=== PATIENT | female | born 1960 | race African-American/Black ===

== ENCOUNTER 2021-02-15 14:49 | Inpatient (IN) | payer OTHER ==
[2021-02-15 16:12] VITALS: BMI 42.2
[2021-02-15] MEDS ORDERED: ACETAMINOPHEN 325 MG TABLET (FP) PO PRN (19:40)
[2021-02-15] MEDS ORDERED: MENTHOL/PHENOL 1 EACH UD MM PRN (19:40)
[2021-02-15] MEDS ORDERED: MAGNESIUM HYDROX 2400MG/30ML ORAL SUSPENSION 30 ML CUP PO PRN (19:40)
[2021-02-15] MEDS ORDERED: ONDANSETRON *ODT* 4 MG TABLET SL PRN ×2 (19:40→19:59)
[2021-02-15] MEDS ORDERED: MAG HYDROX/AL HYDROX/SIMETH 30 ML UNIT-DOSE CUP PO PRN (19:40)
[2021-02-15] MEDS ORDERED: BISMUTH SUBSALICYLATE 524 MG/30 ML PO PRN (19:40)
[2021-02-15] MEDS ORDERED: MAGNESIUM CITRATE 300 ML BOTTLE PO PRN (19:40)
[2021-02-15] MEDS ORDERED: ONDANSETRON 8 MG TABLET (FP) PO PRN (19:47)
[2021-02-15] MEDS ORDERED: IBUPROFEN 400 MG PO SCH (21:00)
[2021-02-15] MEDS: diazePAM 5 MG TABLET PO PRN (21:16)
[2021-02-15] MEDS: BUPRENORPHINE/NALOXONE 8 MG/2 MG FILM PACKET SL SCH (21:17)
[2021-02-15] MEDS: THIAMINE HCL 100 MG TABLET (FP) PO SCH (23:31)
[2021-02-15] MEDS: MELATONIN 5 MG TABLETS PO SCH (23:31)
[2021-02-15] MEDS: diazePAM 5 MG TABLET PO SCH (23:31)
[2021-02-15] MEDS: hydrOXYzine PAMOATE 25 MG CAPSULE (FP) PO SCH (23:31)
[2021-02-16] MEDS: diazePAM 5 MG TABLET PO SCH ×4 (06:28→22:26)
[2021-02-16] MEDS: hydrOXYzine PAMOATE 25 MG CAPSULE (FP) PO SCH ×2 (06:29→10:03)
[2021-02-16] MEDS: metFORMIN HCL 500 MG TABLET (FP) PO SCH (06:29)
[2021-02-16] MEDS: diazePAM 5 MG TABLET PO PRN (08:40)
[2021-02-16] MEDS: PRENATAL VITAMINS W/ FOLIC ACID TABLET (FP) PO SCH (10:02)
[2021-02-16] MEDS: SERTRALINE HCL 50 MG TABLET (FP) PO SCH (10:03)
[2021-02-16] MEDS: BUPRENORPHINE/NALOXONE 8 MG/2 MG FILM PACKET SL SCH ×2 (10:03→21:57)
[2021-02-16] MEDS: HYDROCHLOROTHIAZIDE 25 MG TABLET (FP) PO SCH (10:03)
[2021-02-16 10:05] LABS: HEMATOCRIT 43.9 % (32.4-45.2); HEMOGLOBIN 14.6 GM/dL (10.7-15.3); MCH 30.9 pg (25.7-33.7); MCHC 33.1 g/dl (32.0-36.0); MEAN CELL VOLUME 93.3 fl (80-96); MEAN PLT VOLUME 8.8 fl (7.5-11.1); PLATELET COUNT 226 10^3/uL (134-434); RBC 4.71 M/mm3 (3.60-5.2); WHITE BLOOD COUNT 6.1 K/mm3 (4.0-10.0)
[2021-02-16 10:16] LABS: CALCIUM 9.1 mg/dL (8.5-10.1)
[2021-02-16 10:17] LABS: ALBUMIN 3.5 g/dl (3.4-5.0); BLOOD UREA NITROGEN 8.8 mg/dL (7-18)
[2021-02-16 10:20] LABS: CREATININE 0.8 mg/dL (0.55-1.3)
[2021-02-16 10:22] LABS: BILIRUBIN,TOTAL 0.6 mg/dL (0.2-1); TOT PROT 7.6 g/dl (6.4-8.2)
[2021-02-16] MEDS: PATIENT'S OWN MEDICATION (NON-FORMULARY) (Budesonide [Pulmicort Flexhaler] 90 MCG Aer.Pow. IH SCH (13:31)
[2021-02-16] MEDS: PATIENT'S OWN MEDICATION (NON-FORMULARY) (Umeclidinium Bromide [Incruse Ellipta] 62.5 MCG IH SCH (15:02)
[2021-02-16] MEDS: NICOTINE 10 MG CARTRIDGE (INHALER) IH PRN (17:45)
[2021-02-16] MEDS: MELATONIN 5 MG TABLETS PO SCH (21:56)
[2021-02-16] MEDS: THIAMINE HCL 100 MG TABLET (FP) PO SCH (21:56)
[2021-02-16] MEDS: BUDESONIDE IH SCH (22:00)
[2021-02-16] MEDS: FORMETEROL FUMARATE IH SCH (22:00)
[2021-02-17] MEDS: diazePAM 5 MG TABLET PO SCH ×3 (06:24→22:26)
[2021-02-17] MEDS: metFORMIN HCL 500 MG TABLET (FP) PO SCH (06:24)
[2021-02-17] MEDS: METHOCARBAMOL 500 MG TABLET PO PRN ×2 (06:25→22:26)
[2021-02-17] MEDS: IBUPROFEN 400 MG TABLET (FP) PO PRN (06:25)
[2021-02-17] MEDS: NICOTINE 10 MG CARTRIDGE (INHALER) IH PRN (06:33)
[2021-02-17] MEDS: SERTRALINE HCL 50 MG TABLET (FP) PO SCH (10:13)
[2021-02-17] MEDS: hydrOXYzine PAMOATE 25 MG CAPSULE (FP) PO PRN ×2 (10:13→22:26)
[2021-02-17] MEDS: HYDROCHLOROTHIAZIDE 25 MG TABLET (FP) PO SCH (10:13)
[2021-02-17] MEDS: PRENATAL VITAMINS W/ FOLIC ACID TABLET (FP) PO SCH (10:13)
[2021-02-17] MEDS: FORMETEROL FUMARATE IH SCH ×2 (10:14→22:25)
[2021-02-17] MEDS: BUPRENORPHINE/NALOXONE 8 MG/2 MG FILM PACKET SL SCH ×2 (10:14→22:27)
[2021-02-17] MEDS: BUDESONIDE IH SCH ×2 (10:14→22:25)
[2021-02-17] MEDS: ACETAMINOPHEN 325 MG TABLET (FP) PO PRN (10:16)
[2021-02-17] MEDS: PATIENT'S OWN MEDICATION (NON-FORMULARY) (Umeclidinium Bromide [Incruse Ellipta] 62.5 MCG IH SCH (11:12)
[2021-02-17] MEDS: MELATONIN 5 MG TABLETS PO SCH (22:25)
[2021-02-17] MEDS: THIAMINE HCL 100 MG TABLET (FP) PO SCH (22:26)
[2021-02-18] MEDS: diazePAM 5 MG TABLET PO SCH ×2 (06:31→18:10)
[2021-02-18] MEDS: metFORMIN HCL 500 MG TABLET (FP) PO SCH (06:31)
[2021-02-18] MEDS: METHOCARBAMOL 500 MG TABLET PO PRN ×2 (06:36→19:50)
[2021-02-18] MEDS: NICOTINE 10 MG CARTRIDGE (INHALER) IH PRN ×2 (07:52→12:48)
[2021-02-18] MEDS: PRENATAL VITAMINS W/ FOLIC ACID TABLET (FP) PO SCH (10:19)
[2021-02-18] MEDS: HYDROCHLOROTHIAZIDE 25 MG TABLET (FP) PO SCH (10:20)
[2021-02-18] MEDS: BUDESONIDE IH SCH ×2 (10:20→22:28)
[2021-02-18] MEDS: FORMETEROL FUMARATE IH SCH ×2 (10:20→22:28)
[2021-02-18] MEDS: SERTRALINE HCL 50 MG TABLET (FP) PO SCH (10:20)
[2021-02-18] MEDS: PATIENT'S OWN MEDICATION (NON-FORMULARY) (Umeclidinium Bromide [Incruse Ellipta] 62.5 MCG IH SCH (10:20)
[2021-02-18] MEDS: BUPRENORPHINE/NALOXONE 8 MG/2 MG FILM PACKET SL SCH ×2 (10:21→22:27)
[2021-02-18] MEDS: IBUPROFEN 400 MG TABLET (FP) PO PRN ×2 (10:22→19:50)
[2021-02-18] MEDS ORDERED: BENZOCAINE 20 % GEL TUBE MM PRN (17:52)
[2021-02-18] MEDS: hydrOXYzine PAMOATE 25 MG CAPSULE (FP) PO PRN (19:50)
[2021-02-18] MEDS: MELATONIN 5 MG TABLETS PO SCH (22:23)
[2021-02-18] MEDS: THIAMINE HCL 100 MG TABLET (FP) PO SCH (22:23)
[2021-02-18] MEDS: ACETAMINOPHEN 325 MG TABLET (FP) PO PRN (22:27)
[2021-02-19] MEDS: IBUPROFEN 400 MG TABLET (FP) PO PRN (05:42)
[2021-02-19] MEDS ORDERED: diazePAM 5 MG TABLET PO ONE (06:00)
[2021-02-19] MEDS: metFORMIN HCL 500 MG TABLET (FP) PO SCH (07:53)
[2021-02-19] MEDS ORDERED: FUROSEMIDE 40 MG TABLET (FP) PO ONE (09:01)
[2021-02-19] MEDS: BUDESONIDE IH SCH (10:10)
[2021-02-19] MEDS: PRENATAL VITAMINS W/ FOLIC ACID TABLET (FP) PO SCH (10:10)
[2021-02-19] MEDS: FORMETEROL FUMARATE IH SCH (10:10)
[2021-02-19] MEDS: BUPRENORPHINE/NALOXONE 8 MG/2 MG FILM PACKET SL SCH (10:10)
[2021-02-19] MEDS: SERTRALINE HCL 50 MG TABLET (FP) PO SCH (10:10)
[2021-02-19] MEDS: PATIENT'S OWN MEDICATION (NON-FORMULARY) (Umeclidinium Bromide [Incruse Ellipta] 62.5 MCG IH SCH (10:11)
[2021-02-19] MEDS: HYDROCHLOROTHIAZIDE 25 MG TABLET (FP) PO SCH (10:11)
[2021-02-19] MEDS: NICOTINE 10 MG CARTRIDGE (INHALER) IH PRN (11:17)
[2021-02-19 13:06] VITALS: BP 106/72; PULSE 73; TEMP 97.3
== END 2021-02-19 03:31 | disposition other institution (70) | DRG 773 ==
LOC: YASAS 14:49 → Y3N 19:09
PROVIDERS: ADMIT Allergy & Immunology; ATTEND Allergy & Immunology
PROC: HZ2ZZZZ Detoxification Services for Substance Abuse Treatment (ICD-10-PCS; principal; 2021-02-15)
DX: F10.230 Alcohol dependence with withdrawal, uncomplicated (principal); F11.20 Opioid dependence, uncomplicated; F17.210 Nicotine dependence, cigarettes, uncomplicated; I10 Essential (primary) hypertension; E11.65 Type 2 diabetes mellitus with hyperglycemia; R60.0 Localized edema; R76.8 Other specified abnormal immunological findings in serum; J44.9 Chronic obstructive pulmonary disease, unspecified; E66.9 Obesity, unspecified; Z68.41 Body mass index [BMI] 40.0-44.9, adult; Z86.19 Personal history of other infectious and parasitic diseases; Z79.84 Long term (current) use of oral hypoglycemic drugs
CPT/HCPCS: 36415; 80053; 82962; 85027; 86593; 86780; C9803; U0003; U0005

== ENCOUNTER 2021-02-19 16:05 | Inpatient (IN) | payer OTHER ==
[2021-02-19] MEDS ORDERED: NICOTINE POLACRILEX 2 MG GUM BUC PRN (17:14)
[2021-02-19] MEDS ORDERED: LOPERAMIDE HCL 2 MG CAPSULE PO PRN (17:14)
[2021-02-19] MEDS ORDERED: MENTHOL/PHENOL 1 EACH UD MM PRN (17:14)
[2021-02-19] MEDS ORDERED: P-EPHED 60MG/TRIPROLIDI 2.5MG TABLET PO PRN (17:14)
[2021-02-19] MEDS ORDERED: ACETAMINOPHEN 325 MG TABLET (FP) PO PRN (17:14)
[2021-02-19] MEDS ORDERED: guaiFENesin 200 MG/10 ML 10 ML UNIT-DOSE CUPS PO PRN (17:14)
[2021-02-19] MEDS ORDERED: MAGNESIUM HYDROX 2400MG/30ML ORAL SUSPENSION 30 ML CUP PO PRN (17:14)
[2021-02-19] MEDS ORDERED: MAGNESIUM CITRATE 300 ML BOTTLE PO PRN (17:14)
[2021-02-19] MEDS ORDERED: PATIENT'S OWN MEDICATION (NON-FORMULARY) (Budesonide [Pulmicort Flexhaler] 90 MCG Aer.Pow. IH PRN (17:15)
[2021-02-19] MEDS: BUPRENORPHINE/NALOXONE 8 MG/2 MG FILM PACKET SL SCH (21:31)
[2021-02-19] MEDS: MELATONIN 5 MG TABLETS PO SCH (21:31)
[2021-02-19] MEDS: THIAMINE HCL 100 MG TABLET (FP) PO SCH (21:31)
[2021-02-19] MEDS: BUDESONIDE/FORMETEROL FUMARATE 160/4.5 mcg INHALER IH SCH (22:13)
[2021-02-19] MEDS: MAG HYDROX/AL HYDROX/SIMETH 30 ML UNIT-DOSE CUP PO PRN (22:14)
[2021-02-20 00:23] VITALS: BMI 42.2
[2021-02-20] MEDS: metFORMIN HCL 500 MG TABLET (FP) PO SCH (06:29)
[2021-02-20] MEDS: hydrOXYzine PAMOATE 25 MG CAPSULE (FP) PO PRN ×3 (06:30→14:19)
[2021-02-20] MEDS: BUDESONIDE/FORMETEROL FUMARATE 160/4.5 mcg INHALER IH SCH ×2 (10:20→21:08)
[2021-02-20] MEDS: HYDROCHLOROTHIAZIDE 25 MG TABLET (FP) PO SCH (10:20)
[2021-02-20] MEDS: PRENATAL VITAMINS W/ FOLIC ACID TABLET (FP) PO SCH (10:20)
[2021-02-20] MEDS: BUPRENORPHINE/NALOXONE 8 MG/2 MG FILM PACKET SL SCH ×2 (10:21→21:08)
[2021-02-20] MEDS ORDERED: LIDOCAINE VISCOUS 2% ORAL/TOP 15 ML UNIT-DOSE CUP MM PRN (12:23)
[2021-02-20] MEDS ORDERED: PT OWN MED DRAWER 7, Y5N ONE ×2 (12:43→21:44)
[2021-02-20] MEDS: AMOXICILLIN 500 MG CAPSULE (FP) PO SCH ×2 (14:19→21:09)
[2021-02-20] MEDS: PATIENT'S OWN MEDICATION (NON-FORMULARY) (Umeclidinium Bromide [Incruse Ellipta] 62.5 MCG IH SCH (15:26)
[2021-02-20] MEDS: THIAMINE HCL 100 MG TABLET (FP) PO SCH (21:08)
[2021-02-20] MEDS: MELATONIN 5 MG TABLETS PO SCH (21:09)
[2021-02-21] MEDS: metFORMIN HCL 500 MG TABLET (FP) PO SCH (06:27)
[2021-02-21] MEDS: AMOXICILLIN 500 MG CAPSULE (FP) PO SCH ×3 (06:27→21:53)
[2021-02-21] MEDS: hydrOXYzine PAMOATE 25 MG CAPSULE (FP) PO PRN ×3 (06:29→13:26)
[2021-02-21] MEDS: PATIENT'S OWN MEDICATION (NON-FORMULARY) (Umeclidinium Bromide [Incruse Ellipta] 62.5 MCG IH SCH (09:12)
[2021-02-21] MEDS: PRENATAL VITAMINS W/ FOLIC ACID TABLET (FP) PO SCH (09:13)
[2021-02-21] MEDS: HYDROCHLOROTHIAZIDE 25 MG TABLET (FP) PO SCH (09:13)
[2021-02-21] MEDS: BUDESONIDE/FORMETEROL FUMARATE 160/4.5 mcg INHALER IH SCH ×2 (09:13→21:55)
[2021-02-21] MEDS: SERTRALINE HCL 50 MG TABLET (FP) PO SCH (09:13)
[2021-02-21] MEDS: BUPRENORPHINE/NALOXONE 8 MG/2 MG FILM PACKET SL SCH ×3 (09:14→21:54)
[2021-02-21] MEDS: IBUPROFEN 400 MG TABLET (FP) PO PRN (19:05)
[2021-02-21] MEDS ORDERED: PT OWN MED DRAWER 7, Y5N ONE (19:49)
[2021-02-21] MEDS: MELATONIN 5 MG TABLETS PO SCH (21:53)
[2021-02-21] MEDS: THIAMINE HCL 100 MG TABLET (FP) PO SCH (21:53)
[2021-02-22] MEDS: AMOXICILLIN 500 MG CAPSULE (FP) PO SCH ×3 (06:11→21:56)
[2021-02-22] MEDS: metFORMIN HCL 500 MG TABLET (FP) PO SCH (06:11)
[2021-02-22] MEDS: BUPRENORPHINE/NALOXONE 8 MG/2 MG FILM PACKET SL SCH ×3 (06:11→21:58)
[2021-02-22] MEDS: PRENATAL VITAMINS W/ FOLIC ACID TABLET (FP) PO SCH (10:38)
[2021-02-22] MEDS: HYDROCHLOROTHIAZIDE 25 MG TABLET (FP) PO SCH (10:38)
[2021-02-22] MEDS: PATIENT'S OWN MEDICATION (NON-FORMULARY) (Umeclidinium Bromide [Incruse Ellipta] 62.5 MCG IH SCH (10:38)
[2021-02-22] MEDS: BUDESONIDE/FORMETEROL FUMARATE 160/4.5 mcg INHALER IH SCH ×2 (10:38→21:57)
[2021-02-22] MEDS: SERTRALINE HCL 50 MG TABLET (FP) PO SCH (10:38)
[2021-02-22] MEDS: IBUPROFEN 400 MG TABLET (FP) PO PRN ×2 (10:41→21:56)
[2021-02-22] MEDS: hydrOXYzine PAMOATE 25 MG CAPSULE (FP) PO PRN (13:47)
[2021-02-22] MEDS: METHOCARBAMOL 500 MG TABLET PO PRN ×2 (13:47→21:56)
[2021-02-22] MEDS: LIDOCAINE 5% TOPICAL PATCH TP SCH (13:47)
[2021-02-22] MEDS ORDERED: PT OWN MED DRAWER 7, Y5N ONE (20:38)
[2021-02-22] MEDS: THIAMINE HCL 100 MG TABLET (FP) PO SCH (21:56)
[2021-02-22] MEDS: MELATONIN 5 MG TABLETS PO SCH (21:57)
[2021-02-22] MEDS: LIDOCAINE PATCH REMOVAL MC SCH (21:59)
[2021-02-23] MEDS: metFORMIN HCL 500 MG TABLET (FP) PO SCH (06:29)
[2021-02-23] MEDS: AMOXICILLIN 500 MG CAPSULE (FP) PO SCH ×3 (06:29→21:12)
[2021-02-23] MEDS: BUPRENORPHINE/NALOXONE 8 MG/2 MG FILM PACKET SL SCH ×3 (06:29→21:15)
[2021-02-23] MEDS: hydrOXYzine PAMOATE 25 MG CAPSULE (FP) PO PRN (06:31)
[2021-02-23] MEDS: METHOCARBAMOL 500 MG TABLET PO PRN ×2 (06:32→21:14)
[2021-02-23] MEDS: HYDROCHLOROTHIAZIDE 25 MG TABLET (FP) PO SCH (10:57)
[2021-02-23] MEDS: LIDOCAINE 5% TOPICAL PATCH TP SCH (10:57)
[2021-02-23] MEDS: BUDESONIDE/FORMETEROL FUMARATE 160/4.5 mcg INHALER IH SCH ×2 (10:58→21:12)
[2021-02-23] MEDS: PRENATAL VITAMINS W/ FOLIC ACID TABLET (FP) PO SCH (10:59)
[2021-02-23] MEDS: SERTRALINE HCL 50 MG TABLET (FP) PO SCH (11:05)
[2021-02-23] MEDS: PATIENT'S OWN MEDICATION (NON-FORMULARY) (Umeclidinium Bromide [Incruse Ellipta] 62.5 MCG IH SCH (11:06)
[2021-02-23] MEDS: IBUPROFEN 400 MG TABLET (FP) PO PRN (14:40)
[2021-02-23] MEDS: THIAMINE HCL 100 MG TABLET (FP) PO SCH (21:12)
[2021-02-23] MEDS: MELATONIN 5 MG TABLETS PO SCH (21:12)
[2021-02-23] MEDS: LIDOCAINE PATCH REMOVAL MC SCH (21:13)
[2021-02-24] MEDS: metFORMIN HCL 500 MG TABLET (FP) PO SCH (06:27)
[2021-02-24] MEDS: BUPRENORPHINE/NALOXONE 8 MG/2 MG FILM PACKET SL SCH ×3 (06:27→22:25)
[2021-02-24] MEDS: AMOXICILLIN 500 MG CAPSULE (FP) PO SCH ×3 (06:27→22:24)
[2021-02-24] MEDS: SERTRALINE HCL 50 MG TABLET (FP) PO SCH (10:46)
[2021-02-24] MEDS: HYDROCHLOROTHIAZIDE 25 MG TABLET (FP) PO SCH (10:46)
[2021-02-24] MEDS: PRENATAL VITAMINS W/ FOLIC ACID TABLET (FP) PO SCH (10:47)
[2021-02-24] MEDS: BUDESONIDE/FORMETEROL FUMARATE 160/4.5 mcg INHALER IH SCH ×2 (10:47→22:25)
[2021-02-24] MEDS: PATIENT'S OWN MEDICATION (NON-FORMULARY) (Umeclidinium Bromide [Incruse Ellipta] 62.5 MCG IH SCH (10:47)
[2021-02-24] MEDS: LIDOCAINE 5% TOPICAL PATCH TP SCH (10:47)
[2021-02-24] MEDS: METHOCARBAMOL 500 MG TABLET PO PRN (10:48)
[2021-02-24] MEDS: hydrOXYzine PAMOATE 25 MG CAPSULE (FP) PO PRN (14:38)
[2021-02-24] MEDS: MAG HYDROX/AL HYDROX/SIMETH 30 ML UNIT-DOSE CUP PO PRN (16:59)
[2021-02-24] MEDS: THIAMINE HCL 100 MG TABLET (FP) PO SCH (22:25)
[2021-02-24] MEDS: LIDOCAINE PATCH REMOVAL MC SCH (22:26)
[2021-02-24] MEDS: NICOTINE 10 MG CARTRIDGE (INHALER) IH PRN (22:26)
[2021-02-24] MEDS: MELATONIN 5 MG TABLETS PO SCH (22:26)
[2021-02-25] MEDS: metFORMIN HCL 500 MG TABLET (FP) PO SCH (06:20)
[2021-02-25] MEDS: AMOXICILLIN 500 MG CAPSULE (FP) PO SCH ×3 (06:20→22:09)
[2021-02-25] MEDS: BUPRENORPHINE/NALOXONE 8 MG/2 MG FILM PACKET SL SCH ×3 (06:20→22:09)
[2021-02-25] MEDS: PRENATAL VITAMINS W/ FOLIC ACID TABLET (FP) PO SCH (10:31)
[2021-02-25] MEDS: HYDROCHLOROTHIAZIDE 25 MG TABLET (FP) PO SCH (10:32)
[2021-02-25] MEDS: hydrOXYzine PAMOATE 25 MG CAPSULE (FP) PO PRN ×2 (10:32→14:19)
[2021-02-25] MEDS: METHOCARBAMOL 500 MG TABLET PO PRN (10:32)
[2021-02-25] MEDS: SERTRALINE HCL 50 MG TABLET (FP) PO SCH (10:32)
[2021-02-25] MEDS: BUDESONIDE/FORMETEROL FUMARATE 160/4.5 mcg INHALER IH SCH ×2 (10:33→22:10)
[2021-02-25] MEDS: LIDOCAINE 5% TOPICAL PATCH TP SCH (10:33)
[2021-02-25] MEDS: PATIENT'S OWN MEDICATION (NON-FORMULARY) (Umeclidinium Bromide [Incruse Ellipta] 62.5 MCG IH SCH (10:33)
[2021-02-25] MEDS: IBUPROFEN 400 MG TABLET (FP) PO PRN (14:19)
[2021-02-25] MEDS: MELATONIN 5 MG TABLETS PO SCH (22:09)
[2021-02-25] MEDS: THIAMINE HCL 100 MG TABLET (FP) PO SCH (22:09)
[2021-02-25] MEDS: LIDOCAINE PATCH REMOVAL MC SCH (23:53)
[2021-02-26] MEDS: metFORMIN HCL 500 MG TABLET (FP) PO SCH (06:09)
[2021-02-26] MEDS: AMOXICILLIN 500 MG CAPSULE (FP) PO SCH ×3 (06:09→22:17)
[2021-02-26] MEDS: BUPRENORPHINE/NALOXONE 8 MG/2 MG FILM PACKET SL SCH ×3 (06:09→22:19)
[2021-02-26] MEDS: PRENATAL VITAMINS W/ FOLIC ACID TABLET (FP) PO SCH (10:56)
[2021-02-26] MEDS: HYDROCHLOROTHIAZIDE 25 MG TABLET (FP) PO SCH (10:57)
[2021-02-26] MEDS: SERTRALINE HCL 50 MG TABLET (FP) PO SCH (10:57)
[2021-02-26] MEDS: BUDESONIDE/FORMETEROL FUMARATE 160/4.5 mcg INHALER IH SCH ×2 (10:58→22:16)
[2021-02-26] MEDS: LIDOCAINE 5% TOPICAL PATCH TP SCH (10:58)
[2021-02-26] MEDS: PATIENT'S OWN MEDICATION (NON-FORMULARY) (Umeclidinium Bromide [Incruse Ellipta] 62.5 MCG IH SCH (10:58)
[2021-02-26] MEDS: IBUPROFEN 400 MG TABLET (FP) PO PRN ×2 (11:00→20:17)
[2021-02-26] MEDS: METHOCARBAMOL 500 MG TABLET PO PRN (20:17)
[2021-02-26] MEDS: NICOTINE 10 MG CARTRIDGE (INHALER) IH PRN (20:18)
[2021-02-26] MEDS ORDERED: PT OWN MED DRAWER 7, Y5N ONE (21:09)
[2021-02-26] MEDS: LIDOCAINE PATCH REMOVAL MC SCH (22:17)
[2021-02-26] MEDS: MELATONIN 5 MG TABLETS PO SCH (22:17)
[2021-02-26] MEDS: THIAMINE HCL 100 MG TABLET (FP) PO SCH (22:17)
[2021-02-27] MEDS: BUPRENORPHINE/NALOXONE 8 MG/2 MG FILM PACKET SL SCH ×3 (06:42→21:21)
[2021-02-27] MEDS: AMOXICILLIN 500 MG CAPSULE (FP) PO SCH (06:42)
[2021-02-27] MEDS: metFORMIN HCL 500 MG TABLET (FP) PO SCH (06:42)
[2021-02-27] MEDS: PRENATAL VITAMINS W/ FOLIC ACID TABLET (FP) PO SCH (10:48)
[2021-02-27] MEDS: SERTRALINE HCL 50 MG TABLET (FP) PO SCH (10:48)
[2021-02-27] MEDS: BUDESONIDE/FORMETEROL FUMARATE 160/4.5 mcg INHALER IH SCH ×2 (10:49→21:24)
[2021-02-27] MEDS: PATIENT'S OWN MEDICATION (NON-FORMULARY) (Umeclidinium Bromide [Incruse Ellipta] 62.5 MCG IH SCH (10:49)
[2021-02-27] MEDS: LIDOCAINE 5% TOPICAL PATCH TP SCH (10:50)
[2021-02-27] MEDS: HYDROCHLOROTHIAZIDE 25 MG TABLET (FP) PO SCH (10:51)
[2021-02-27] MEDS: METHOCARBAMOL 500 MG TABLET PO PRN ×2 (14:41→21:20)
[2021-02-27] MEDS: IBUPROFEN 400 MG TABLET (FP) PO PRN (16:43)
[2021-02-27] MEDS: LIDOCAINE PATCH REMOVAL MC SCH (21:20)
[2021-02-27] MEDS: MELATONIN 5 MG TABLETS PO SCH (21:20)
[2021-02-27] MEDS: THIAMINE HCL 100 MG TABLET (FP) PO SCH (21:20)
[2021-02-27] MEDS: hydrOXYzine PAMOATE 25 MG CAPSULE (FP) PO PRN (21:20)
[2021-02-27] MEDS ORDERED: PT OWN MED DRAWER 7, Y5N ONE (21:24)
[2021-02-28] MEDS: metFORMIN HCL 500 MG TABLET (FP) PO SCH (06:23)
[2021-02-28] MEDS: BUPRENORPHINE/NALOXONE 8 MG/2 MG FILM PACKET SL SCH ×3 (06:23→21:11)
[2021-02-28] MEDS: METHOCARBAMOL 500 MG TABLET PO PRN ×3 (06:24→21:13)
[2021-02-28] MEDS: PATIENT'S OWN MEDICATION (NON-FORMULARY) (Umeclidinium Bromide [Incruse Ellipta] 62.5 MCG IH SCH (11:11)
[2021-02-28] MEDS: PRENATAL VITAMINS W/ FOLIC ACID TABLET (FP) PO SCH (11:11)
[2021-02-28] MEDS: BUDESONIDE/FORMETEROL FUMARATE 160/4.5 mcg INHALER IH SCH ×2 (11:11→21:11)
[2021-02-28] MEDS: LIDOCAINE 5% TOPICAL PATCH TP SCH (11:12)
[2021-02-28] MEDS: SERTRALINE HCL 50 MG TABLET (FP) PO SCH (11:13)
[2021-02-28] MEDS: HYDROCHLOROTHIAZIDE 25 MG TABLET (FP) PO SCH (11:13)
[2021-02-28] MEDS: IBUPROFEN 400 MG TABLET (FP) PO PRN (11:15)
[2021-02-28] MEDS: ALBUTEROL SO4 HFA INHALER IH PRN (15:33)
[2021-02-28] MEDS ORDERED: PT OWN MED DRAWER 7, Y5N ONE ×3 (15:59→23:27)
[2021-02-28] MEDS: THIAMINE HCL 100 MG TABLET (FP) PO SCH (21:11)
[2021-02-28] MEDS: MELATONIN 5 MG TABLETS PO SCH (21:11)
[2021-02-28] MEDS: LIDOCAINE PATCH REMOVAL MC SCH (21:11)
[2021-03-01] MEDS: metFORMIN HCL 500 MG TABLET (FP) PO SCH (06:27)
[2021-03-01] MEDS: BUPRENORPHINE/NALOXONE 8 MG/2 MG FILM PACKET SL SCH ×3 (06:27→21:23)
[2021-03-01] MEDS: METHOCARBAMOL 500 MG TABLET PO PRN (06:29)
[2021-03-01] MEDS: PRENATAL VITAMINS W/ FOLIC ACID TABLET (FP) PO SCH (10:35)
[2021-03-01] MEDS: SERTRALINE HCL 50 MG TABLET (FP) PO SCH (10:36)
[2021-03-01] MEDS: HYDROCHLOROTHIAZIDE 25 MG TABLET (FP) PO SCH (10:37)
[2021-03-01] MEDS: LIDOCAINE 5% TOPICAL PATCH TP SCH (10:37)
[2021-03-01] MEDS: PATIENT'S OWN MEDICATION (NON-FORMULARY) (Umeclidinium Bromide [Incruse Ellipta] 62.5 MCG IH SCH (10:38)
[2021-03-01] MEDS: BUDESONIDE/FORMETEROL FUMARATE 160/4.5 mcg INHALER IH SCH ×2 (10:39→21:22)
[2021-03-01] MEDS: IBUPROFEN 400 MG TABLET (FP) PO PRN ×2 (10:39→21:20)
[2021-03-01] MEDS ORDERED: PT OWN MED DRAWER 7, Y5N ONE ×2 (20:51→21:20)
[2021-03-01] MEDS: ALBUTEROL SO4 HFA INHALER IH PRN (21:19)
[2021-03-01] MEDS: MELATONIN 5 MG TABLETS PO SCH (21:22)
[2021-03-01] MEDS: LIDOCAINE PATCH REMOVAL MC SCH (21:22)
[2021-03-01] MEDS: THIAMINE HCL 100 MG TABLET (FP) PO SCH (21:22)
[2021-03-02] MEDS: BUPRENORPHINE/NALOXONE 8 MG/2 MG FILM PACKET SL SCH ×3 (06:08→22:04)
[2021-03-02] MEDS: metFORMIN HCL 500 MG TABLET (FP) PO SCH (06:09)
[2021-03-02] MEDS: HYDROCHLOROTHIAZIDE 25 MG TABLET (FP) PO SCH (10:41)
[2021-03-02] MEDS: PATIENT'S OWN MEDICATION (NON-FORMULARY) (Umeclidinium Bromide [Incruse Ellipta] 62.5 MCG IH SCH (10:41)
[2021-03-02] MEDS: SERTRALINE HCL 50 MG TABLET (FP) PO SCH (10:42)
[2021-03-02] MEDS: PRENATAL VITAMINS W/ FOLIC ACID TABLET (FP) PO SCH (10:42)
[2021-03-02] MEDS: BUDESONIDE/FORMETEROL FUMARATE 160/4.5 mcg INHALER IH SCH (10:42)
[2021-03-02] MEDS: LIDOCAINE 5% TOPICAL PATCH TP SCH (10:42)
[2021-03-02] MEDS: IBUPROFEN 400 MG TABLET (FP) PO PRN ×2 (10:43→22:05)
[2021-03-02] MEDS: MELATONIN 5 MG TABLETS PO SCH (22:05)
[2021-03-02] MEDS: LIDOCAINE PATCH REMOVAL MC SCH (22:05)
[2021-03-02] MEDS: THIAMINE HCL 100 MG TABLET (FP) PO SCH (22:05)
[2021-03-02] MEDS: hydrOXYzine PAMOATE 25 MG CAPSULE (FP) PO PRN (22:05)
[2021-03-02] MEDS: METHOCARBAMOL 500 MG TABLET PO PRN (22:06)
[2021-03-03] MEDS: BUDESONIDE/FORMETEROL FUMARATE 160/4.5 mcg INHALER IH SCH ×3 (00:46→22:01)
[2021-03-03] MEDS: BUPRENORPHINE/NALOXONE 8 MG/2 MG FILM PACKET SL SCH ×3 (06:31→21:58)
[2021-03-03] MEDS: metFORMIN HCL 500 MG TABLET (FP) PO SCH (06:32)
[2021-03-03] MEDS: PRENATAL VITAMINS W/ FOLIC ACID TABLET (FP) PO SCH (10:44)
[2021-03-03] MEDS: SERTRALINE HCL 50 MG TABLET (FP) PO SCH (10:45)
[2021-03-03] MEDS: IBUPROFEN 400 MG TABLET (FP) PO PRN ×2 (10:45→22:00)
[2021-03-03] MEDS: HYDROCHLOROTHIAZIDE 25 MG TABLET (FP) PO SCH (10:45)
[2021-03-03] MEDS: LIDOCAINE 5% TOPICAL PATCH TP SCH (10:46)
[2021-03-03] MEDS: PATIENT'S OWN MEDICATION (NON-FORMULARY) (Umeclidinium Bromide [Incruse Ellipta] 62.5 MCG IH SCH (10:47)
[2021-03-03] MEDS ORDERED: PT OWN MED DRAWER 7, Y5N ONE ×2 (10:56→20:02)
[2021-03-03] MEDS: MELATONIN 5 MG TABLETS PO SCH (21:58)
[2021-03-03] MEDS: THIAMINE HCL 100 MG TABLET (FP) PO SCH (21:58)
[2021-03-03] MEDS: LIDOCAINE PATCH REMOVAL MC SCH (21:59)
[2021-03-03] MEDS: hydrOXYzine PAMOATE 25 MG CAPSULE (FP) PO PRN (21:59)
[2021-03-04] MEDS: BUPRENORPHINE/NALOXONE 8 MG/2 MG FILM PACKET SL SCH ×3 (06:19→22:07)
[2021-03-04] MEDS: metFORMIN HCL 500 MG TABLET (FP) PO SCH (06:19)
[2021-03-04] MEDS: SERTRALINE HCL 50 MG TABLET (FP) PO SCH (10:22)
[2021-03-04] MEDS: HYDROCHLOROTHIAZIDE 25 MG TABLET (FP) PO SCH (10:22)
[2021-03-04] MEDS: PRENATAL VITAMINS W/ FOLIC ACID TABLET (FP) PO SCH (10:22)
[2021-03-04] MEDS: NICOTINE 10 MG CARTRIDGE (INHALER) IH PRN (10:22)
[2021-03-04] MEDS: LIDOCAINE 5% TOPICAL PATCH TP SCH (10:23)
[2021-03-04] MEDS: PATIENT'S OWN MEDICATION (NON-FORMULARY) (Umeclidinium Bromide [Incruse Ellipta] 62.5 MCG IH SCH (10:23)
[2021-03-04] MEDS: BUDESONIDE/FORMETEROL FUMARATE 160/4.5 mcg INHALER IH SCH ×2 (10:23→22:08)
[2021-03-04] MEDS: METHOCARBAMOL 500 MG TABLET PO PRN (10:27)
[2021-03-04] MEDS: IBUPROFEN 400 MG TABLET (FP) PO PRN (10:27)
[2021-03-04] MEDS ORDERED: PT OWN MED DRAWER 7, Y5N ONE (20:58)
[2021-03-04] MEDS: THIAMINE HCL 100 MG TABLET (FP) PO SCH (22:07)
[2021-03-04] MEDS: hydrOXYzine PAMOATE 25 MG CAPSULE (FP) PO PRN (22:07)
[2021-03-04] MEDS: MELATONIN 5 MG TABLETS PO SCH (22:07)
[2021-03-04] MEDS: LIDOCAINE PATCH REMOVAL MC SCH (23:23)
[2021-03-05] MEDS: metFORMIN HCL 500 MG TABLET (FP) PO SCH (06:21)
[2021-03-05] MEDS: BUPRENORPHINE/NALOXONE 8 MG/2 MG FILM PACKET SL SCH (06:21)
[2021-03-05 07:26] VITALS: TEMP 97.6
[2021-03-05] MEDS: LIDOCAINE 5% TOPICAL PATCH TP SCH (09:16)
[2021-03-05] MEDS: SERTRALINE HCL 50 MG TABLET (FP) PO SCH (09:16)
[2021-03-05] MEDS: HYDROCHLOROTHIAZIDE 25 MG TABLET (FP) PO SCH (09:16)
[2021-03-05] MEDS: PRENATAL VITAMINS W/ FOLIC ACID TABLET (FP) PO SCH (09:16)
[2021-03-05] MEDS: BUDESONIDE/FORMETEROL FUMARATE 160/4.5 mcg INHALER IH SCH (09:17)
[2021-03-05] MEDS: PATIENT'S OWN MEDICATION (NON-FORMULARY) (Umeclidinium Bromide [Incruse Ellipta] 62.5 MCG IH SCH (09:18)
[2021-03-05 11:40] VITALS: BP 129/67; PULSE 81
== END 2021-03-05 09:20 | disposition home or self-care (01) | DRG 772 ==
LOC: YASAS 16:05 → Y5N 16:06
PROVIDERS: ADMIT Allergy & Immunology; ATTEND Allergy & Immunology
PROC: HZ42ZZZ Group Counseling for Substance Abuse Treatment, Cognitive-Behavioral (ICD-10-PCS; principal; 2021-02-19)
DX: F10.20 Alcohol dependence, uncomplicated (principal); F17.210 Nicotine dependence, cigarettes, uncomplicated; E11.9 Type 2 diabetes mellitus without complications; Z79.84 Long term (current) use of oral hypoglycemic drugs; I10 Essential (primary) hypertension; J45.909 Unspecified asthma, uncomplicated; K04.7 Periapical abscess without sinus; Z62.810 Personal history of physical and sexual abuse in childhood; Z91.410 Personal history of adult physical and sexual abuse; Z86.59 Personal history of other mental and behavioral disorders; Z51.81 Encounter for therapeutic drug level monitoring
CPT/HCPCS: 82962

== ENCOUNTER 2024-02-09 14:23 | Inpatient (IN) | payer OTHER ==
[2024-02-09 15:44] VITALS: BMI 40.5
[2024-02-09] MEDS ORDERED: MAG HYDROX/AL HYDROX/SIMETH 30 ML UNIT-DOSE CUP PO PRN (17:26)
[2024-02-09] MEDS ORDERED: MAGNESIUM HYDROX 2400MG/30ML ORAL SUSPENSION 30 ML CUP PO PRN (17:26)
[2024-02-09] MEDS ORDERED: guaiFENesin 600 MG TABLET.ER (FP) PO PRN (17:26)
[2024-02-09] MEDS ORDERED: hydrOXYzine PAMOATE 25 MG CAPSULE (FP) PO PRN (17:26)
[2024-02-09] MEDS ORDERED: IBUPROFEN 400 MG TABLET (FP) PO PRN (17:26)
[2024-02-09] MEDS ORDERED: cloNIDine HCL 0.1 MG TABLET PO PRN (17:26)
[2024-02-09] MEDS ORDERED: POLYETHYLENE GLYCOL (HEALTHYLAX) 3350 17 GM PACKET PO PRN (17:26)
[2024-02-09] MEDS ORDERED: LOPERAMIDE HCL 2 MG CAPSULE PO PRN (17:26)
[2024-02-09] MEDS ORDERED: BISMUTH SUBSALICYLATE 524 MG/30 ML PO PRN (17:26)
[2024-02-09] MEDS ORDERED: NALOXONE (NARCAN) HCL 4 MG/0.1 ML SPRAY NS PRN (17:26)
[2024-02-09] MEDS ORDERED: BENZONATATE 200 MG CAPSULE PO PRN (17:26)
[2024-02-09] MEDS ORDERED: NALOXONE HCL 0.4 MG/ML VIAL IM PRN (17:26)
[2024-02-09] MEDS ORDERED: LORazepam 1 MG TABLET PO PRN (17:26)
[2024-02-09] MEDS ORDERED: DICYCLOMINE HCL 10 MG CAPSULE PO PRN (17:26)
[2024-02-09] MEDS ORDERED: LORazepam 1 MG TABLET ONE (18:42)
[2024-02-09] MEDS: LORazepam 1 MG TABLET PO ONE (18:44)
[2024-02-09] MEDS ORDERED: methaDONE HCL 10 MG TABLET (FOR DETOX USE ONLY) ONE (18:48)
[2024-02-09] MEDS ORDERED: PATIENT'S OWN MEDICATION (NON-FORMULARY) (Budesonide [Pulmicort Flexhaler] 90 MCG Aer.Pow. IH PRN (19:37)
[2024-02-09] MEDS: ACETAMINOPHEN 325 MG TABLET (FP) PO PRN (20:12)
[2024-02-09] MEDS: METHOCARBAMOL 500 MG TABLET PO PRN (20:13)
[2024-02-09] MEDS: BUDESONIDE/FORMETEROL FUMARATE 160/4.5 mcg INHALER IH SCH (22:08)
[2024-02-09] MEDS: THIAMINE 100 MG TABLET PO SCH (22:08)
[2024-02-09] MEDS: MELATONIN 5 MG TABLETS PO SCH (22:08)
[2024-02-09] MEDS: LORazepam 1 MG TABLET PO SCH (22:09)
[2024-02-10] MEDS: metFORMIN HCL 500 MG TABLET (FP) PO SCH (06:20)
[2024-02-10] MEDS: INSULIN ASPART SLIDING SCALE (NOVOLOG) 1 VIAL SQ SCH (07:05)
[2024-02-10] MEDS: methaDONE HCL 10 MG TABLET (FOR DETOX USE ONLY) PO ONE (10:12)
[2024-02-10] MEDS: TIOTROPIUM BROMIDE 2.5 MCG (SPIRIVA) RESPIMAT INHALER IH SCH (10:13)
[2024-02-10] MEDS: PRENATAL VITAMINS W/ FOLIC ACID TABLET (FP) PO SCH (10:13)
[2024-02-10] MEDS: HYDROCHLOROTHIAZIDE 25 MG TABLET (FP) PO SCH (10:13)
[2024-02-10 11:51] LABS: CHLORIDE 84 mmol/L (98-107); POTASSIUM 3.9 mmol/L (3.5-5.1); SODIUM 133 mmol/L (136-145)
[2024-02-10 12:00] LABS: CALCIUM 9.7 mg/dL (8.5-10.1)
[2024-02-10 12:01] LABS: ALBUMIN 3.8 g/dl (3.4-5.0); ANION GAP 12 mmol/L (4-13); CO2 37 mmol/L (21-32); GLUCOSE,RANDOM 123 mg/dL (74-106)
[2024-02-10 12:04] LABS: BILIRUBIN,TOTAL 0.8 mg/dL (0.2-1); CREATININE 0.8 mg/dL (0.55-1.3); SGOT/AST 47 U/L (15-37); SGPT/ALT 27 U/L (13-61); TOT PROT 7.5 g/dl (6.4-8.2)
[2024-02-10 12:05] LABS: ALK PHOS 115 U/L (45-117)
[2024-02-10 12:10] LABS: HEMATOCRIT 42.1 % (32.4-45.2); HEMOGLOBIN 14.1 GM/dL (10.7-15.3); MCH 28.7 pg (25.7-33.7); MCHC 33.5 g/dl (32.0-36.0); MEAN CELL VOLUME 85.7 fl (80-96); MEAN PLT VOLUME 8.5 fl (7.5-11.1); PLATELET COUNT 201 10^3/uL (134-434); RBC 4.91 M/mm3 (3.60-5.2); WHITE BLOOD COUNT 6.2 K/mm3 (4.0-10.0)
[2024-02-10] MEDS: BENZOCAINE/MENTHOL (CHLORASEPTIC ) LOZENGE MM PRN (17:43)
[2024-02-11] MEDS: LORazepam 1 MG TABLET PO SCH (05:55)
[2024-02-11] MEDS: SERTRALINE HCL 50 MG TABLET (FP) PO SCH (10:07)
[2024-02-12] MEDS ORDERED: LORazepam 0.5 MG TABLET PO PRN
[2024-02-12] MEDS: IBUPROFEN 600 MG TABLET (FP) PO PRN (03:56)
[2024-02-12] MEDS: LORazepam 0.5 MG TABLET PO SCH (05:37)
[2024-02-12] MEDS: methaDONE HCL 10 MG TABLET (FOR DETOX USE ONLY) PO ONE (10:24)
[2024-02-12] MEDS: ONDANSETRON *ODT* 4 MG TABLET SL PRN (16:23)
[2024-02-12 21:05] VITALS: RESP 18
[2024-02-13] MEDS: LORazepam 0.5 MG TABLET PO ONE (05:30)
[2024-02-13 09:21] VITALS: BP 123/84; PULSE 85; TEMP 97.3
== END 2024-02-13 10:48 | disposition home or self-care (01) | DRG 773 ==
LOC: YASAS 14:23 → Y3N 19:13
PROVIDERS: ADMIT Allergy & Immunology; ATTEND Surgery
PROC: HZ2ZZZZ Detoxification Services for Substance Abuse Treatment (ICD-10-PCS; principal; 2024-02-09)
DX: F11.23 Opioid dependence with withdrawal (principal); F10.230 Alcohol dependence with withdrawal, uncomplicated; F17.210 Nicotine dependence, cigarettes, uncomplicated; F31.9 Bipolar disorder, unspecified; E78.5 Hyperlipidemia, unspecified; I10 Essential (primary) hypertension; J45.909 Unspecified asthma, uncomplicated; E11.9 Type 2 diabetes mellitus without complications; Z79.84 Long term (current) use of oral hypoglycemic drugs; Z87.19 Personal history of other diseases of the digestive system; Z86.19 Personal history of other infectious and parasitic diseases; Z62.810 Personal history of physical and sexual abuse in childhood; Z91.410 Personal history of adult physical and sexual abuse
CPT/HCPCS: 36415; 80053; 80305; 80307; 82962; 85027; 86593; 86780; 93005; 93010; Q0162

== ENCOUNTER 2024-03-09 15:42 | Inpatient (IN) | payer OTHER ==
[2024-03-09 16:51] VITALS: BMI 39.4
[2024-03-09] MEDS ORDERED: DICYCLOMINE HCL 10 MG CAPSULE PO PRN (19:09)
[2024-03-09] MEDS ORDERED: BENZOCAINE/MENTHOL (CHLORASEPTIC ) LOZENGE MM PRN (19:09)
[2024-03-09] MEDS ORDERED: IBUPROFEN 600 MG TABLET (FP) PO PRN (19:09)
[2024-03-09] MEDS ORDERED: BENZONATATE 200 MG CAPSULE PO PRN (19:09)
[2024-03-09] MEDS ORDERED: IBUPROFEN 400 MG TABLET (FP) PO PRN (19:09)
[2024-03-09] MEDS ORDERED: hydrOXYzine PAMOATE 25 MG CAPSULE (FP) PO PRN (19:09)
[2024-03-09] MEDS ORDERED: POLYETHYLENE GLYCOL (HEALTHYLAX) 3350 17 GM PACKET PO PRN (19:09)
[2024-03-09] MEDS ORDERED: MAGNESIUM HYDROX 2400MG/30ML ORAL SUSPENSION 30 ML CUP PO PRN (19:09)
[2024-03-09] MEDS ORDERED: BISMUTH SUBSALICYLATE 524 MG/30 ML PO PRN (19:09)
[2024-03-09] MEDS ORDERED: NALOXONE (NARCAN) HCL 4 MG/0.1 ML SPRAY NS PRN (19:09)
[2024-03-09] MEDS ORDERED: chlordiazePOXIDE HCL 25 MG CAPSULE PO PRN (19:09)
[2024-03-09] MEDS ORDERED: LOPERAMIDE HCL 2 MG CAPSULE PO PRN (19:09)
[2024-03-09] MEDS ORDERED: NALOXONE HCL 0.4 MG/ML VIAL IM PRN (19:09)
[2024-03-09] MEDS ORDERED: guaiFENesin 600 MG TABLET.ER (FP) PO PRN (19:09)
[2024-03-09] MEDS: diazePAM 5 MG TABLET PO PRN (20:00)
[2024-03-09] MEDS: THIAMINE 100 MG TABLET PO SCH (22:09)
[2024-03-09] MEDS: MELATONIN 5 MG TABLETS PO SCH (22:09)
[2024-03-09] MEDS: BUPRENORPHINE/NALOXONE 8 MG/2 MG FILM PACKET SL SCH (22:10)
[2024-03-09] MEDS: diazePAM 5 MG TABLET PO SCH (22:12)
[2024-03-09] MEDS ORDERED: chlordiazePOXIDE HCL 25 MG CAPSULE PO SCH (23:00)
[2024-03-10] MEDS: ONDANSETRON *ODT* 4 MG TABLET SL PRN (05:43)
[2024-03-10] MEDS: MAG HYDROX/AL HYDROX/SIMETH 30 ML UNIT-DOSE CUP PO PRN (06:03)
[2024-03-10] MEDS: metFORMIN HCL 500 MG TABLET (FP) PO SCH (06:04)
[2024-03-10] MEDS: INSULIN ASPART SLIDING SCALE (NOVOLOG) 1 VIAL SQ SCH (06:06)
[2024-03-10] MEDS ORDERED: chlordiazePOXIDE HCL 25 MG CAPSULE PO PRN (09:16)
[2024-03-10] MEDS: chlordiazePOXIDE HCL 25 MG CAPSULE PO SCH (10:14)
[2024-03-10] MEDS: PRENATAL VITAMINS W/ FOLIC ACID TABLET (FP) PO SCH (10:14)
[2024-03-10 11:18] LABS: HEMATOCRIT 39.8 % (32.4-45.2); MCH 29.3 pg (25.7-33.7); MCHC 32.7 g/dl (32.0-36.0); MEAN CELL VOLUME 89.5 fl (80-96); MEAN PLT VOLUME 8.4 fl (7.5-11.1); PLATELET COUNT 245 10^3/uL (134-434); RBC 4.45 M/mm3 (3.60-5.2); RDW 17.5 % (11.6-15.6); WHITE BLOOD COUNT 6.8 K/mm3 (4.0-10.0)
[2024-03-10 11:21] LABS: CHLORIDE 100 mmol/L (98-107); POTASSIUM 3.2 mmol/L (3.5-5.1); SODIUM 142 mmol/L (136-145)
[2024-03-10 11:32] LABS: ALBUMIN 3.2 g/dl (3.4-5.0); ANION GAP 7 mmol/L (4-13); CALCIUM 8.9 mg/dL (8.5-10.1); CO2 35 mmol/L (21-32); GLUCOSE,RANDOM 129 mg/dL (74-106)
[2024-03-10 11:35] LABS: CREATININE 0.6 mg/dL (0.55-1.3); SGOT/AST 18 U/L (15-37); SGPT/ALT 19 U/L (13-61)
[2024-03-10 11:37] LABS: BILIRUBIN,TOTAL 0.5 mg/dL (0.2-1); TOT PROT 6.6 g/dl (6.4-8.2)
[2024-03-10 11:38] LABS: ALK PHOS 97 U/L (45-117)
[2024-03-10] MEDS: SERTRALINE HCL 50 MG TABLET (FP) PO SCH (12:17)
[2024-03-10] MEDS: ACETAMINOPHEN 325 MG TABLET (FP) PO PRN (19:23)
[2024-03-10] MEDS: ALBUTEROL SO4 HFA INHALER IH PRN (21:07)
[2024-03-11] MEDS ORDERED: chlordiazePOXIDE HCL 25 MG CAPSULE PO SCH (05:00)
[2024-03-11] MEDS ORDERED: diazePAM 5 MG TABLET PO SCH (06:00)
[2024-03-11] MEDS: METHOCARBAMOL 500 MG TABLET PO PRN (07:40)
[2024-03-11] MEDS: ACETAMINOPHEN 325 MG TABLET (FP) PO PRN (13:48)
[2024-03-11] MEDS: TIOTROPIUM BROMIDE 2.5 MCG (SPIRIVA) RESPIMAT INHALER IH SCH (14:07)
[2024-03-11] MEDS ORDERED: INSULIN (NOVOLOG) ASPART 100 UNITS/ML 10ML VIAL ONE (16:39)
[2024-03-11] MEDS: ATORVASTATIN CA 40 MG TABLET (FP) PO SCH (22:25)
[2024-03-11] MEDS: BUDESONIDE/FORMETEROL FUMARATE 160/4.5 mcg INHALER IH SCH (22:26)
[2024-03-12] MEDS ORDERED: chlordiazePOXIDE HCL 10 MG CAPSULE PO PRN
[2024-03-12] MEDS ORDERED: chlordiazePOXIDE HCL 10 MG CAPSULE PO SCH (05:00)
[2024-03-12] MEDS: chlordiazePOXIDE HCL 25 MG CAPSULE PO SCH (06:00)
[2024-03-12] MEDS ORDERED: diazePAM 5 MG TABLET PO SCH (06:00)
[2024-03-12] MEDS: DOCUSATE SODIUM 100 MG CAPSULE (FP) PO SCH (10:06)
[2024-03-12] MEDS: HYDROCHLOROTHIAZIDE 25 MG TABLET (FP) PO SCH (10:06)
[2024-03-13] MEDS ORDERED: chlordiazePOXIDE HCL 10 MG CAPSULE PO PRN
[2024-03-13] MEDS ORDERED: chlordiazePOXIDE HCL 10 MG CAPSULE PO SCH (05:00)
[2024-03-13] MEDS: chlordiazePOXIDE HCL 10 MG CAPSULE PO SCH (05:50)
[2024-03-13] MEDS ORDERED: diazePAM 5 MG TABLET PO ONE (06:00)
[2024-03-13] MEDS: IBUPROFEN 600 MG TABLET (FP) PO ONE (13:53)
[2024-03-13] MEDS: NICOTINE POLACRILEX 2 MG GUM BUC PRN (18:02)
[2024-03-14] MEDS ORDERED: chlordiazePOXIDE HCL 10 MG CAPSULE PO ONE (05:00)
[2024-03-14] MEDS: chlordiazePOXIDE HCL 10 MG CAPSULE PO SCH (05:56)
[2024-03-14 11:24] VITALS: RESP 18
[2024-03-14 13:25] VITALS: BP 123/79; PULSE 94; TEMP 97.8
[2024-03-14] MEDS: POTASSIUM CHLORIDE ORAL LIQUID 20 MEQ/15 ML PO ONE ×2 (13:40→14:02)
[2024-03-15] MEDS ORDERED: chlordiazePOXIDE HCL 10 MG CAPSULE PO ONE (05:00)
== END 2024-03-14 15:45 | disposition other institution (70) | DRG 775 ==
LOC: YASAS 15:42 → Y6N 19:31
PROVIDERS: ADMIT Allergy & Immunology; ATTEND Surgery
PROC: HZ2ZZZZ Detoxification Services for Substance Abuse Treatment (ICD-10-PCS; principal; 2024-03-09)
DX: F10.230 Alcohol dependence with withdrawal, uncomplicated (principal); F17.210 Nicotine dependence, cigarettes, uncomplicated; F39 Unspecified mood [affective] disorder; F19.282 Other psychoactive substance dependence with psychoactive substance-induced sleep disorder; F19.24 Other psychoactive substance dependence with psychoactive substance-induced mood disorder; E87.6 Hypokalemia; E78.5 Hyperlipidemia, unspecified; I10 Essential (primary) hypertension; J44.9 Chronic obstructive pulmonary disease, unspecified; K21.9 Gastro-esophageal reflux disease without esophagitis; E11.9 Type 2 diabetes mellitus without complications; Z79.84 Long term (current) use of oral hypoglycemic drugs; Z86.19 Personal history of other infectious and parasitic diseases
CPT/HCPCS: 36415; 80053; 80305; 80307; 82962; 84132; 85027; 86593; 86780; 87811; 93005; 93010; Q0162

== ENCOUNTER 2024-03-14 15:55 | Inpatient (IN) | payer OTHER ==
[2024-03-14] MEDS ORDERED: LOPERAMIDE HCL 2 MG CAPSULE PO PRN (18:40)
[2024-03-14] MEDS ORDERED: BENZONATATE 200 MG CAPSULE PO PRN (18:40)
[2024-03-14] MEDS ORDERED: NALOXONE (NARCAN) HCL 4 MG/0.1 ML SPRAY NS PRN (18:40)
[2024-03-14] MEDS ORDERED: guaiFENesin 600 MG TABLET.ER (FP) PO PRN (18:40)
[2024-03-14] MEDS ORDERED: hydrOXYzine PAMOATE 25 MG CAPSULE (FP) PO PRN (18:40)
[2024-03-14] MEDS ORDERED: POLYETHYLENE GLYCOL (HEALTHYLAX) 3350 17 GM PACKET PO PRN (18:40)
[2024-03-14] MEDS ORDERED: ACETAMINOPHEN 325 MG TABLET (FP) PO PRN (18:40)
[2024-03-14] MEDS ORDERED: IBUPROFEN 400 MG TABLET (FP) PO PRN (18:40)
[2024-03-14] MEDS ORDERED: BENZOCAINE/MENTHOL (CHLORASEPTIC ) LOZENGE MM PRN (18:40)
[2024-03-14] MEDS ORDERED: MAGNESIUM HYDROX 2400MG/30ML ORAL SUSPENSION 30 ML CUP PO PRN (18:40)
[2024-03-14] MEDS ORDERED: NALOXONE HCL 0.4 MG/ML VIAL IVPUSH PRN (18:40)
[2024-03-14] MEDS: IBUPROFEN 600 MG TABLET (FP) PO PRN (19:09)
[2024-03-14] MEDS: METHOCARBAMOL 500 MG TABLET PO PRN (19:09)
[2024-03-14] MEDS: MELATONIN 5 MG TABLETS PO SCH (21:57)
[2024-03-14] MEDS: THIAMINE 100 MG TABLET PO SCH (21:58)
[2024-03-14] MEDS: BUPRENORPHINE/NALOXONE 8 MG/2 MG FILM PACKET SL SCH (22:00)
[2024-03-14] MEDS: ALBUTEROL SO4 HFA INHALER IH PRN (22:02)
[2024-03-14] MEDS: BUDESONIDE/FORMETEROL FUMARATE 160/4.5 mcg INHALER IH SCH (22:26)
[2024-03-15 00:03] VITALS: RESP 18
[2024-03-15] MEDS: metFORMIN HCL 500 MG TABLET (FP) PO SCH (06:52)
[2024-03-15] MEDS: INSULIN ASPART SLIDING SCALE (NOVOLOG) 1 VIAL SQ SCH (06:54)
[2024-03-15] MEDS: SERTRALINE HCL 50 MG TABLET (FP) PO SCH (10:08)
[2024-03-15] MEDS: PRENATAL VITAMINS W/ FOLIC ACID TABLET (FP) PO SCH (10:08)
[2024-03-15] MEDS: HYDROCHLOROTHIAZIDE 25 MG TABLET (FP) PO SCH (10:09)
[2024-03-15] MEDS: NICOTINE 21 MG/24 HOURS TOPICAL PATCH TD SCH (10:09)
[2024-03-15] MEDS: TIOTROPIUM BROMIDE 2.5 MCG (SPIRIVA) RESPIMAT INHALER IH SCH (12:28)
[2024-03-15] MEDS: ATORVASTATIN CA 40 MG TABLET (FP) PO SCH (21:34)
[2024-03-16] MEDS: MAG HYDROX/AL HYDROX/SIMETH 30 ML UNIT-DOSE CUP PO PRN (06:34)
[2024-03-16] MEDS: DOCUSATE SODIUM 100 MG CAPSULE (FP) PO SCH (09:53)
[2024-03-16] MEDS: ACAMPROSATE CALCIUM 333 MG TABLET.DR PO SCH (15:13)
[2024-03-16] MEDS: LIDOCAINE 4% PATCH TP SCH (15:14)
[2024-03-16 17:33] VITALS: BP 118/79; PULSE 91; TEMP 97.3
[2024-03-16] MEDS: LIDOCAINE PATCH REMOVAL MC SCH (23:42)
[2024-03-17] MEDS ORDERED: FOLIC ACID INJECTION - 1 MG, THIAMINE HCL 100 MG, MULTIVIT INJECTION ADULT 10 ML in SOD... IVPB ONE (01:02)
[2024-03-17] MEDS ORDERED: INSULIN ASPART SLIDING SCALE (NOVOLOG) 1 VIAL SQ SCH (01:15)
[2024-03-17] MEDS ORDERED: ENOXAPARIN NA (PORCINE) 40 MG/0.4 ML DISP.SYRIN SQ SCH (10:00)
[2024-03-17] MEDS ORDERED: THIAMINE HCL 200 MG/2 ML VIAL IVPB SCH (10:00)
[2024-03-17] MEDS ORDERED: FOLIC ACID 1 MG TABLET (FP) PO SCH (10:00)
== END 2024-03-17 02:45 | disposition short-term general hospital (02) | DRG 772 ==
LOC: YASAS 15:55 → Y5N 15:57
PROVIDERS: ADMIT Surgery; ATTEND Psychiatry & Neurology Pain Medicine
PROC: HZ42ZZZ Group Counseling for Substance Abuse Treatment, Cognitive-Behavioral (ICD-10-PCS; principal; 2024-03-14)
DX: F10.20 Alcohol dependence, uncomplicated (principal); F11.20 Opioid dependence, uncomplicated; F17.210 Nicotine dependence, cigarettes, uncomplicated; E78.5 Hyperlipidemia, unspecified; J45.909 Unspecified asthma, uncomplicated; I10 Essential (primary) hypertension; K21.9 Gastro-esophageal reflux disease without esophagitis; E11.9 Type 2 diabetes mellitus without complications; Z79.84 Long term (current) use of oral hypoglycemic drugs; R06.02 Shortness of breath; R60.0 Localized edema; Z86.19 Personal history of other infectious and parasitic diseases
CPT/HCPCS: 36415; 82962; 86803; 87522

== ENCOUNTER 2024-03-16 19:17 | Inpatient (IN) | payer OTHER ==
[2024-03-16 19:51] VITALS: BMI 39.4
[2024-03-16 20:30] LABS: BASO % 0.7 % (0-2.0); EOS % 3.2 % (0-4.5); HEMATOCRIT 39.7 % (32.4-45.2); HEMOGLOBIN 12.7 GM/dL (10.7-15.3); LYMPH % 32.7 % (8-40); MCH 29.2 pg (25.7-33.7); MEAN CELL VOLUME 91.2 fl (80-96); MEAN PLT VOLUME 8.1 fl (7.5-11.1); MONO % 14.1 % (3.8-10.2); NEUT % 49.3 % (42.8-82.8); PLATELET COUNT 185 10^3/uL (134-434); RBC 4.35 M/mm3 (3.60-5.2); RDW 18.9 % (11.6-15.6); WHITE BLOOD COUNT 5.4 K/mm3 (4.0-10.0)
[2024-03-16] MEDS ORDERED: THIAMINE HCL 200 MG/2 ML VIAL ONE ×2 (20:36→20:49)
[2024-03-16] MEDS: THIAMINE HCL 200 MG/2 ML VIAL IVPB ONE (21:16)
[2024-03-16 21:43] LABS: INR 0.89 (0.83-1.09); PROTHROMBIN TIME (PATIENT) 10.3 SEC (9.7-13.0)
[2024-03-16 21:46] LABS: ACTIVATED PTT 36.1 SECONDS (25.2-36.5)
[2024-03-16 21:47] LABS: POTASSIUM 4.8 mmol/L (3.5-5.1)
[2024-03-16 21:50] LABS: ALBUMIN 3.1 g/dl (3.4-5.0); BLOOD UREA NITROGEN 14.1 mg/dL (7-18)
[2024-03-16 21:53] LABS: CREATININE 0.6 mg/dL (0.55-1.3)
[2024-03-16 21:54] LABS: BILIRUBIN,TOTAL 0.4 mg/dL (0.2-1)
[2024-03-16 21:55] LABS: TOT PROT 6.8 g/dl (6.4-8.2)
[2024-03-16 23:44] LABS: PH,URINE 6.5 (5.0-8.0); URINE APPEARANCE CLEAR; URINE BILIRUBIN NEGATIVE (NEGATIVE); URINE COLOR YELLOW; URINE GLUCOSE (UA) NEGATIVE (NEGATIVE); URINE KETONE NEGATIVE (NEGATIVE); URINE LEUK ESTERASE NEGATIVE (NEGATIVE); URINE NITRITE NEGATIVE (NEGATIVE); URINE PROTEIN NEGATIVE (NEGATIVE); URINE UROBILINOGEN 0.2 mg/dL (0.2-1.0)
[2024-03-16 23:49] LABS: COCAINE, UR NEGATIVE (NEGATIVE); METHADONE, UR NEGATIVE (NEGATIVE); OPIATES, URI NEGATIVE (NEGATIVE); URINE BARBITURATES NEGATIVE (NEGATIVE)
[2024-03-16 23:50] LABS: PHENCYCLIDINE,URINE NEGATIVE (NEGATIVE)
[2024-03-16 23:54] LABS: URINE AMPHETAMINES NEGATIVE (NEGATIVE); URINE BENZODIAZEPINES POSITIVE (NEGATIVE)
[2024-03-17] MEDS ORDERED: ALBUTEROL SO4 HFA INHALER IH PRN (01:29)
[2024-03-17] MEDS ORDERED: LORazepam 1 MG TABLET PO PRN (02:16)
[2024-03-17] MEDS: FUROSEMIDE 40 MG/4 ML INJECTABLE VIAL IVPUSH ONE (02:26)
[2024-03-17] MEDS: INSULIN ASPART SLIDING SCALE (NOVOLOG) 1 VIAL SQ SCH ×2 (02:33→08:53)
[2024-03-17] MEDS: FOLIC ACID INJECTION - 1 MG, THIAMINE HCL 100 MG, MULTIVIT INJECTION ADULT 10 ML in SOD... IVPB ONE (03:13)
[2024-03-17 05:01] LABS: N-TERMINAL BNP 508.5 pg/ml (5-125)
[2024-03-17] MEDS ORDERED: BUPRENORPHINE/NALOXONE 8 MG/2 MG FILM PACKET ONE (06:36)
[2024-03-17] MEDS: BUPRENORPHINE/NALOXONE 8 MG/2 MG FILM PACKET SL SCH (06:41)
[2024-03-17] MEDS ORDERED: INSULIN ASPART SLIDING SCALE (NOVOLOG) 1 VIAL SQ SCH (07:00)
[2024-03-17 07:34] LABS: CHOLESTEROL 144 mg/dL (50-200)
[2024-03-17 07:35] LABS: LDL CHOLESTEROL (ONLY SJRH) 75 mg/dL (5-100)
[2024-03-17 07:37] LABS: HDL CHOLESTEROL 56 mg/dL (40-60)
[2024-03-17] MEDS ORDERED: PATIENT'S OWN MEDICATION (NON-FORMULARY) (Umeclidinium Bromide [Incruse Ellipta] 62.5 MCG IH SCH (10:00)
[2024-03-17] MEDS: ENOXAPARIN NA (PORCINE) 40 MG/0.4 ML DISP.SYRIN SQ SCH (14:05)
[2024-03-17] MEDS: FOLIC ACID 1 MG TABLET (FP) PO SCH (14:05)
[2024-03-17] MEDS: SERTRALINE HCL 50 MG TABLET (FP) PO SCH (14:05)
[2024-03-17] MEDS: FUROSEMIDE 40 MG/4 ML INJECTABLE VIAL IVPUSH SCH (14:06)
[2024-03-17] MEDS: THIAMINE HCL 200 MG/2 ML VIAL IVPB SCH (14:08)
[2024-03-17] MEDS: NICOTINE 7 MG/24 HOURS TOPICAL PATCH TD SCH (14:12)
[2024-03-17] MEDS: BUDESONIDE/FORMETEROL FUMARATE 160/4.5 mcg INHALER IH SCH (14:13)
[2024-03-17] MEDS: TIOTROPIUM BROMIDE 2.5 MCG (SPIRIVA) RESPIMAT INHALER IH SCH (14:13)
[2024-03-17 15:22] LABS: PH,URINE 7.5 (5.0-8.0); URINE APPEARANCE CLEAR; URINE BILIRUBIN NEGATIVE (NEGATIVE); URINE COLOR YELLOW; URINE GLUCOSE (UA) NEGATIVE (NEGATIVE); URINE KETONE NEGATIVE (NEGATIVE); URINE LEUK ESTERASE NEGATIVE (NEGATIVE); URINE NITRITE NEGATIVE (NEGATIVE); URINE PROTEIN NEGATIVE (NEGATIVE)
[2024-03-18 10:09] LABS: POTASSIUM 3.5 mmol/L (3.5-5.1)
[2024-03-18 10:11] LABS: CALCIUM 8.8 mg/dL (8.5-10.1)
[2024-03-18 10:12] LABS: BLOOD UREA NITROGEN 11.7 mg/dL (7-18)
[2024-03-18 10:14] LABS: BILIRUBIN,DIRECT 0.2 mg/dL (0.0-0.2)
[2024-03-18 10:15] LABS: CREATININE 0.7 mg/dL (0.55-1.3)
[2024-03-18 10:16] LABS: BILIRUBIN,TOTAL 0.8 mg/dL (0.2-1); TOT PROT 6.6 g/dl (6.4-8.2)
[2024-03-18] MEDS: KETOROLAC TROMETHAMINE 15 MG/ML VIAL IVPUSH ONE (17:34)
[2024-03-18] MEDS: LIDOCAINE 5% TOPICAL PATCH TP SCH (17:41)
[2024-03-18] MEDS: MAG HYDROX/AL HYDROX/SIMETH 30 ML UNIT-DOSE CUP PO ONE (20:07)
[2024-03-18] MEDS: MAG HYDROX/AL HYDROX/SIMETH -MYLANTA- ORAL SUSPENSION PO ONE (20:07)
[2024-03-18] MEDS: LIDOCAINE PATCH REMOVAL MC SCH (21:42)
[2024-03-18] MEDS: ATORVASTATIN CA 40 MG TABLET (FP) PO SCH (21:42)
[2024-03-19] MEDS: ACETAMINOPHEN 325 MG TABLET (FP) PO PRN (03:00)
[2024-03-19 09:44] LABS: BASO % 0.7 % (0-2.0); EOS % 2.9 % (0-4.5); HEMATOCRIT 36.3 % (32.4-45.2); HEMOGLOBIN 11.7 GM/dL (10.7-15.3); LYMPH % 25.7 % (8-40); MCH 29.2 pg (25.7-33.7); MCHC 32.3 g/dl (32.0-36.0); MEAN CELL VOLUME 90.3 fl (80-96); MEAN PLT VOLUME 8.6 fl (7.5-11.1); MONO % 9.9 % (3.8-10.2); NEUT % 60.8 % (42.8-82.8); PLATELET COUNT 213 10^3/uL (134-434); RBC 4.02 M/mm3 (3.60-5.2); RDW 18.5 % (11.6-15.6); WHITE BLOOD COUNT 5.5 K/mm3 (4.0-10.0)
[2024-03-19 09:59] LABS: POTASSIUM 3.3 mmol/L (3.5-5.1)
[2024-03-19 10:02] LABS: CALCIUM 8.6 mg/dL (8.5-10.1)
[2024-03-19 10:03] LABS: ALBUMIN 2.8 g/dl (3.4-5.0); BLOOD UREA NITROGEN 12.4 mg/dL (7-18)
[2024-03-19 10:05] LABS: CREATININE 0.7 mg/dL (0.55-1.3)
[2024-03-19 10:06] LABS: PHOSPHOROUS 2.8 mg/dL (2.5-4.9)
[2024-03-19 10:07] LABS: BILIRUBIN,TOTAL 0.6 mg/dL (0.2-1); TOT PROT 6.1 g/dl (6.4-8.2)
[2024-03-19] MEDS: DOCUSATE SODIUM 100 MG CAPSULE (FP) PO SCH (12:18)
[2024-03-19] MEDS: POTASSIUM CHLORIDE ORAL LIQUID 20 MEQ/15 ML PO ONE (15:13)
[2024-03-20] MEDS: LORazepam 0.5 MG TABLET PO PRN (02:24)
[2024-03-20 08:49] LABS: BASO % 1.1 % (0-2.0); EOS % 2.3 % (0-4.5); HEMATOCRIT 33.3 % (32.4-45.2); HEMOGLOBIN 10.6 GM/dL (10.7-15.3); LYMPH % 24.7 % (8-40); MCH 29.3 pg (25.7-33.7); MCHC 31.7 g/dl (32.0-36.0); MEAN CELL VOLUME 92.3 fl (80-96); MEAN PLT VOLUME 8.8 fl (7.5-11.1); MONO % 8.4 % (3.8-10.2); NEUT % 63.5 % (42.8-82.8); PLATELET COUNT 213 10^3/uL (134-434); RBC 3.61 M/mm3 (3.60-5.2); RDW 18.2 % (11.6-15.6); WHITE BLOOD COUNT 5.8 K/mm3 (4.0-10.0)
[2024-03-20 09:07] LABS: POTASSIUM 3.8 mmol/L (3.5-5.1)
[2024-03-20 09:15] LABS: ALBUMIN 2.8 g/dl (3.4-5.0); BLOOD UREA NITROGEN 10.2 mg/dL (7-18); CALCIUM 8.5 mg/dL (8.5-10.1); MAGNESIUM 2.1 mg/dL (1.8-2.4)
[2024-03-20 09:17] LABS: BILIRUBIN,TOTAL 0.5 mg/dL (0.2-1)
[2024-03-20 09:19] LABS: CREATININE 0.6 mg/dL (0.55-1.3); PHOSPHOROUS 3.5 mg/dL (2.5-4.9)
[2024-03-20] MEDS: FUROSEMIDE 40 MG TABLET (FP) PO SCH (09:56)
[2024-03-20] MEDS: SODIUM CHLORIDE NASAL SPRAY 44 ML BOTTLE NS PRN (14:04)
[2024-03-20] MEDS: guaiFENesin 200 MG/10 ML 10 ML UNIT-DOSE CUPS PO PRN (14:04)
[2024-03-20] MEDS: FLUTICASONE PROP 0.05% 16 GM NASAL SPRAY NS SCH (14:05)
[2024-03-20] MEDS: FUROSEMIDE 40 MG/4 ML INJECTABLE VIAL IVPUSH ONE (17:45)
[2024-03-21] MEDS: MELATONIN 5 MG TABLETS PO ONE (02:41)
[2024-03-21 07:01] VITALS: RESP 18
[2024-03-22] MEDS: guaiFENesin/D-METHORPHAN TAB.ER.12H PO SCH (09:59)
[2024-03-22] MEDS: BENZOCAINE/MENTHOL 1 EACH LOZENGE MM PRN (10:02)
[2024-03-22 10:19] LABS: BASO % 0.9 % (0-2.0); EOS % 3.4 % (0-4.5); HEMATOCRIT 37.3 % (32.4-45.2); LYMPH % 37.2 % (8-40); MCH 29.2 pg (25.7-33.7); MCHC 32.3 g/dl (32.0-36.0); MEAN CELL VOLUME 90.5 fl (80-96); MEAN PLT VOLUME 8.7 fl (7.5-11.1); MONO % 6.7 % (3.8-10.2); NEUT % 51.8 % (42.8-82.8); PLATELET COUNT 246 10^3/uL (134-434); RBC 4.12 M/mm3 (3.60-5.2); RDW 18.2 % (11.6-15.6); WHITE BLOOD COUNT 5.6 K/mm3 (4.0-10.0)
[2024-03-22 10:33] LABS: POTASSIUM 3.9 mmol/L (3.5-5.1)
[2024-03-22 10:35] LABS: BLOOD UREA NITROGEN 11.2 mg/dL (7-18); CALCIUM 8.8 mg/dL (8.5-10.1); MAGNESIUM 1.9 mg/dL (1.8-2.4)
[2024-03-22 10:38] LABS: CREATININE 0.7 mg/dL (0.55-1.3)
[2024-03-22 10:39] LABS: PHOSPHOROUS 2.8 mg/dL (2.5-4.9)
[2024-03-22 10:40] LABS: BILIRUBIN,TOTAL 0.5 mg/dL (0.2-1); TOT PROT 6.6 g/dl (6.4-8.2)
[2024-03-22] MEDS: CEFUROXIME AXETIL 500 MG TABLET PO SCH (11:51)
[2024-03-22 14:41] VITALS: BP 111/73; PULSE 77; TEMP 98.2
== END 2024-03-22 15:33 | disposition other institution (70) | DRG 194 ==
LOC: JER 19:17 → JERBED 03-17 00:13 → J5S 03-17 09:56 → OBSVTOIN 03-18 09:40
PROVIDERS: ADMIT Internal Medicine
DX: I11.0 Hypertensive heart disease with heart failure (principal); K21.9 Gastro-esophageal reflux disease without esophagitis; E11.9 Type 2 diabetes mellitus without complications; J44.9 Chronic obstructive pulmonary disease, unspecified; J96.21 Acute and chronic respiratory failure with hypoxia; E51.2 Wernicke's encephalopathy; J45.909 Unspecified asthma, uncomplicated; F11.20 Opioid dependence, uncomplicated; M06.9 Rheumatoid arthritis, unspecified; I50.33 Acute on chronic diastolic (congestive) heart failure; F19.20 Other psychoactive substance dependence, uncomplicated; F10.239 Alcohol dependence with withdrawal, unspecified; F31.9 Bipolar disorder, unspecified; E78.5 Hyperlipidemia, unspecified; E66.01 Morbid (severe) obesity due to excess calories; Z68.41 Body mass index [BMI] 40.0-44.9, adult; M54.50 Low back pain, unspecified
CPT/HCPCS: 36415; 70450-TC; 70496-TC; 70498-TC; 71045-TC-FY; 71250-TC; 80048; 80053; 80061; 80076; 80307; 81003; 82962; 83735; 83880; 84100; 84439; 84443; 84484; 85025; 85379; 85610; 85730; 87086; 93005; 93010; 93306-TC; 93970-TC; 94761; 97116-GP; 97161-GP; 99285-25; G0378; Q9967

== ENCOUNTER 2024-03-22 16:46 | Inpatient (IN) | payer OTHER ==
[2024-03-22 17:22] VITALS: BMI 42.5
[2024-03-22] MEDS ORDERED: MAGNESIUM HYDROX 2400MG/30ML ORAL SUSPENSION 30 ML CUP PO PRN (17:35)
[2024-03-22] MEDS ORDERED: MAG HYDROX/AL HYDROX/SIMETH 30 ML UNIT-DOSE CUP PO PRN (17:35)
[2024-03-22] MEDS ORDERED: LOPERAMIDE HCL 2 MG CAPSULE PO PRN (17:35)
[2024-03-22] MEDS ORDERED: POLYETHYLENE GLYCOL (HEALTHYLAX) 3350 17 GM PACKET PO PRN (17:35)
[2024-03-22] MEDS ORDERED: NALOXONE HCL 0.4 MG/ML VIAL IM PRN (17:35)
[2024-03-22] MEDS ORDERED: IBUPROFEN 400 MG TABLET (FP) PO PRN (17:35)
[2024-03-22] MEDS ORDERED: NALOXONE (NARCAN) HCL 4 MG/0.1 ML SPRAY NS PRN (17:35)
[2024-03-22] MEDS ORDERED: BENZONATATE 200 MG CAPSULE PO PRN (17:35)
[2024-03-22] MEDS ORDERED: hydrOXYzine PAMOATE 25 MG CAPSULE (FP) PO PRN (17:35)
[2024-03-22] MEDS ORDERED: guaiFENesin 200 MG/10 ML 10 ML UNIT-DOSE CUPS PO PRN (17:40)
[2024-03-22] MEDS: MELATONIN 5 MG TABLETS PO SCH (21:24)
[2024-03-22] MEDS: BUDESONIDE/FORMETEROL FUMARATE 160/4.5 mcg INHALER IH SCH (21:25)
[2024-03-22] MEDS: THIAMINE 100 MG TABLET PO SCH (21:26)
[2024-03-22] MEDS: ATORVASTATIN CA 40 MG TABLET (FP) PO SCH (21:26)
[2024-03-22] MEDS: BUPRENORPHINE/NALOXONE 8 MG/2 MG FILM PACKET SL SCH (21:26)
[2024-03-23] MEDS: CEFUROXIME AXETIL 500 MG TABLET PO SCH (01:23)
[2024-03-23] MEDS: guaiFENesin/D-METHORPHAN TAB.ER.12H PO SCH (01:24)
[2024-03-23] MEDS: IBUPROFEN 600 MG TABLET (FP) PO PRN (06:35)
[2024-03-23] MEDS: INSULIN ASPART SLIDING SCALE (NOVOLOG) 1 VIAL SQ SCH (06:59)
[2024-03-23] MEDS: DOCUSATE SODIUM 100 MG CAPSULE (FP) PO SCH (09:23)
[2024-03-23] MEDS: metFORMIN HCL 500 MG TABLET (FP) PO SCH (09:23)
[2024-03-23] MEDS: FUROSEMIDE 40 MG TABLET (FP) PO SCH (09:24)
[2024-03-23] MEDS: predniSONE 20 MG TABLET (UD) PO SCH (09:24)
[2024-03-23] MEDS: PRENATAL VITAMINS W/ FOLIC ACID TABLET (FP) PO SCH (09:25)
[2024-03-23] MEDS: SERTRALINE HCL 50 MG TABLET (FP) PO SCH (11:25)
[2024-03-23] MEDS: TIOTROPIUM BROMIDE 2.5 MCG (SPIRIVA) RESPIMAT INHALER IH SCH (11:37)
[2024-03-23] MEDS: PATIENT'S OWN MEDICATION (NON-FORMULARY) (Sertraline Hcl [Zoloft] 100 MG Tablet) PO SCH (11:38)
[2024-03-23] MEDS: ACAMPROSATE CALCIUM 333 MG TABLET.DR PO SCH (21:38)
[2024-03-24] MEDS: ACETAMINOPHEN 325 MG TABLET (FP) PO PRN (14:55)
[2024-03-24] MEDS: guaiFENesin 600 MG TABLET.ER (FP) PO PRN (16:59)
[2024-03-25] MEDS: SODIUM CHLORIDE NASAL SPRAY 44 ML BOTTLE NS PRN (07:42)
[2024-03-25] MEDS: BENZOCAINE/MENTHOL (CHLORASEPTIC ) LOZENGE MM PRN (07:42)
[2024-03-25] MEDS ORDERED: INSULIN (LEVEMIR) 100 UNITS/ML UNITS SQ ONE (22:08)
[2024-03-26] MEDS: ALBUTEROL SO4 HFA INHALER IH PRN (04:16)
[2024-03-28 07:32] VITALS: TEMP 97.6
[2024-03-29 06:10] VITALS: RESP 16
[2024-03-29 10:34] VITALS: BP 124/71; PULSE 76
== END 2024-03-29 09:35 | disposition home or self-care (01) | DRG 772 ==
LOC: YASAS 16:46 → Y5N 18:47
PROVIDERS: ADMIT Neuromusculoskeletal Medicine & OMM; ATTEND Psychiatry & Neurology Pain Medicine
PROC: HZ42ZZZ Group Counseling for Substance Abuse Treatment, Cognitive-Behavioral (ICD-10-PCS; principal; 2024-03-22)
DX: F11.20 Opioid dependence, uncomplicated (principal); F10.20 Alcohol dependence, uncomplicated; F17.210 Nicotine dependence, cigarettes, uncomplicated; F19.282 Other psychoactive substance dependence with psychoactive substance-induced sleep disorder; F19.24 Other psychoactive substance dependence with psychoactive substance-induced mood disorder; F31.9 Bipolar disorder, unspecified; F32.A Depression, unspecified; E78.5 Hyperlipidemia, unspecified; I10 Essential (primary) hypertension; J44.9 Chronic obstructive pulmonary disease, unspecified; K21.9 Gastro-esophageal reflux disease without esophagitis; E11.9 Type 2 diabetes mellitus without complications; Z79.4 Long term (current) use of insulin; M19.90 Unspecified osteoarthritis, unspecified site; M54.50 Low back pain, unspecified; G89.29 Other chronic pain; Z86.19 Personal history of other infectious and parasitic diseases
CPT/HCPCS: 80305; 82962; 87811

== ENCOUNTER 2024-06-01 12:24 | Inpatient (IN) | payer OTHER ==
[2024-06-01 13:28] VITALS: BMI 35.2
[2024-06-01] MEDS ORDERED: guaiFENesin 200 MG/10 ML 10 ML UNIT-DOSE CUPS PO PRN (14:11)
[2024-06-01] MEDS ORDERED: SODIUM CHLORIDE NASAL SPRAY 44 ML BOTTLE NS PRN (14:11)
[2024-06-01] MEDS ORDERED: BENZOCAINE/MENTH/CETYLPYRD CL 1 EACH LOZENGE MM PRN (14:13)
[2024-06-01] MEDS ORDERED: NICOTINE POLACRILEX 2 MG LOZENGE BC PRN (14:15)
[2024-06-01] MEDS ORDERED: POLYETHYLENE GLYCOL (HEALTHYLAX) 3350 17 GM PACKET PO PRN (14:15)
[2024-06-01] MEDS ORDERED: BENZOCAINE/MENTHOL (CHLORASEPTIC ) LOZENGE MM PRN (14:15)
[2024-06-01] MEDS ORDERED: MAGNESIUM HYDROX 2400MG/30ML ORAL SUSPENSION 30 ML CUP PO PRN (14:15)
[2024-06-01] MEDS ORDERED: MAG HYDROX/AL HYDROX/SIMETH 30 ML UNIT-DOSE CUP PO PRN (14:15)
[2024-06-01] MEDS ORDERED: BISMUTH SUBSALICYLATE 262 MG/15 ML BTL PO PRN (14:15)
[2024-06-01] MEDS ORDERED: guaiFENesin 600 MG TABLET.ER (FP) PO PRN (14:15)
[2024-06-01] MEDS ORDERED: BENZONATATE 200 MG CAPSULE PO PRN (14:15)
[2024-06-01] MEDS ORDERED: IBUPROFEN 400 MG TABLET (FP) PO PRN (14:15)
[2024-06-01] MEDS ORDERED: IBUPROFEN 600 MG TABLET (FP) PO PRN (14:15)
[2024-06-01] MEDS ORDERED: NICOTINE POLACRILEX 2 MG GUM BUC PRN (14:15)
[2024-06-01] MEDS ORDERED: METOPROLOL TARTRATE 25 MG TABLET (FP) ONE (15:36)
[2024-06-01] MEDS: METOPROLOL TARTRATE 25 MG TABLET (FP) PO ONE (15:39)
[2024-06-01] MEDS: METHOCARBAMOL 500 MG TABLET PO PRN (16:40)
[2024-06-01] MEDS: DICYCLOMINE HCL 10 MG CAPSULE PO PRN (20:45)
[2024-06-01] MEDS: chlordiazePOXIDE HCL 25 MG CAPSULE PO PRN (20:46)
[2024-06-01] MEDS: ALBUTEROL SO4 HFA INHALER IH PRN (21:54)
[2024-06-01] MEDS: MELATONIN 5 MG TABLETS PO SCH (22:18)
[2024-06-01] MEDS: THIAMINE 100 MG TABLET PO SCH (22:19)
[2024-06-01] MEDS: DOCUSATE SODIUM 100 MG CAPSULE (FP) PO SCH (22:19)
[2024-06-01] MEDS: ATORVASTATIN CA 40 MG TABLET (FP) PO SCH (22:19)
[2024-06-01] MEDS: BUDESONIDE/FORMETEROL FUMARATE 160/4.5 mcg INHALER IH SCH (22:20)
[2024-06-01] MEDS: chlordiazePOXIDE HCL 25 MG CAPSULE PO SCH (22:21)
[2024-06-01] MEDS: BUPRENORPHINE/NALOXONE 8 MG/2 MG FILM PACKET SL SCH (22:45)
[2024-06-02] MEDS: metFORMIN HCL 500 MG TABLET (FP) PO SCH (06:18)
[2024-06-02] MEDS: TIOTROPIUM BROMIDE 2.5 MCG (SPIRIVA) RESPIMAT INHALER IH SCH (09:41)
[2024-06-02] MEDS: PRENATAL VITAMINS W/ FOLIC ACID TABLET (FP) PO SCH (09:42)
[2024-06-02] MEDS: FUROSEMIDE 40 MG TABLET (FP) PO SCH (09:44)
[2024-06-02] MEDS: SERTRALINE HCL 50 MG TABLET (FP) PO SCH (10:42)
[2024-06-02 13:17] LABS: HEMATOCRIT 41.6 % (32.4-45.2); HEMOGLOBIN 13.8 GM/dL (10.7-15.3); MCH 28.9 pg (25.7-33.7); MCHC 33.2 g/dl (32.0-36.0); MEAN PLT VOLUME 8.8 fl (7.5-11.1); PLATELET COUNT 155 10^3/uL (134-434); RBC 4.78 M/mm3 (3.60-5.2); RDW 15.1 % (11.6-15.6); WHITE BLOOD COUNT 6.8 K/mm3 (4.0-10.0)
[2024-06-02] MEDS: ONDANSETRON *ODT* 4 MG TABLET SL PRN (14:06)
[2024-06-02 14:09] LABS: POTASSIUM 3.1 mmol/L (3.5-5.1)
[2024-06-02 14:11] LABS: CALCIUM 9.8 mg/dL (8.5-10.1)
[2024-06-02 14:12] LABS: ALBUMIN 3.8 g/dl (3.4-5.0); BLOOD UREA NITROGEN 7.2 mg/dL (7-18)
[2024-06-02 14:15] LABS: CREATININE 1.2 mg/dL (0.55-1.3)
[2024-06-02 14:16] LABS: BILIRUBIN,TOTAL 1.1 mg/dL (0.2-1)
[2024-06-02 14:17] LABS: TOT PROT 7.9 g/dl (6.4-8.2)
[2024-06-02] MEDS: METOPROLOL TARTRATE 25 MG TABLET (FP) PO ONE (15:17)
[2024-06-02] MEDS: ACETAMINOPHEN 325 MG TABLET (FP) PO PRN (17:35)
[2024-06-02] MEDS: ACAMPROSATE CALCIUM 333 MG TABLET.DR PO SCH (22:09)
[2024-06-02] MEDS: METOPROLOL TARTRATE 25 MG TABLET (FP) PO SCH (22:09)
[2024-06-03] MEDS: chlordiazePOXIDE HCL 25 MG CAPSULE PO SCH (05:43)
[2024-06-03] MEDS: POTASSIUM CHLORIDE ORAL LIQUID 20 MEQ/15 ML PO SCH (10:27)
[2024-06-03] MEDS: LOPERAMIDE HCL 2 MG CAPSULE PO ONE (11:18)
[2024-06-04] MEDS ORDERED: chlordiazePOXIDE HCL 10 MG CAPSULE PO PRN
[2024-06-04] MEDS: chlordiazePOXIDE HCL 10 MG CAPSULE PO SCH (06:01)
[2024-06-04] MEDS: LOPERAMIDE HCL 2 MG CAPSULE PO PRN (08:55)
[2024-06-05] MEDS: chlordiazePOXIDE HCL 10 MG CAPSULE PO SCH (05:37)
[2024-06-06] MEDS: chlordiazePOXIDE HCL 10 MG CAPSULE PO ONE (05:55)
[2024-06-06] MEDS: ONDANSETRON *ODT* 4 MG TABLET SL ONE (14:44)
[2024-06-07 09:16] VITALS: RESP 18; TEMP 97.6
[2024-06-07 13:19] VITALS: BP 107/73; PULSE 84
== END 2024-06-07 13:45 | disposition other institution (70) | DRG 773 ==
LOC: YASAS 12:24 → Y6N 15:36
PROVIDERS: ADMIT Allergy & Immunology; ATTEND Surgery
PROC: HZ2ZZZZ Detoxification Services for Substance Abuse Treatment (ICD-10-PCS; principal; 2024-06-01)
DX: F10.230 Alcohol dependence with withdrawal, uncomplicated (principal); F11.20 Opioid dependence, uncomplicated; F17.210 Nicotine dependence, cigarettes, uncomplicated; F19.282 Other psychoactive substance dependence with psychoactive substance-induced sleep disorder; F19.24 Other psychoactive substance dependence with psychoactive substance-induced mood disorder; I10 Essential (primary) hypertension; E87.6 Hypokalemia; E78.5 Hyperlipidemia, unspecified; E11.9 Type 2 diabetes mellitus without complications; Z79.84 Long term (current) use of oral hypoglycemic drugs; J43.0 Unilateral pulmonary emphysema [MacLeod's syndrome]; J45.20 Mild intermittent asthma, uncomplicated; B18.2 Chronic viral hepatitis C; M06.00 Rheumatoid arthritis without rheumatoid factor, unspecified site; M54.50 Low back pain, unspecified; G89.29 Other chronic pain; Z62.810 Personal history of physical and sexual abuse in childhood; Z91.410 Personal history of adult physical and sexual abuse; Z99.89 Dependence on other enabling machines and devices
CPT/HCPCS: 36415; 80053; 80305; 80307; 82962; 83036; 84132; 85027; 87811; Q0162

== ENCOUNTER 2024-06-07 13:43 | Inpatient (IN) | payer OTHER ==
[2024-06-07] MEDS ORDERED: NICOTINE POLACRILEX 2 MG LOZENGE BC PRN (13:46)
[2024-06-07] MEDS ORDERED: BENZONATATE 200 MG CAPSULE PO PRN (13:46)
[2024-06-07] MEDS ORDERED: guaiFENesin 600 MG TABLET.ER (FP) PO PRN (13:46)
[2024-06-07] MEDS ORDERED: MAGNESIUM HYDROX 2400MG/30ML ORAL SUSPENSION 30 ML CUP PO PRN (13:46)
[2024-06-07] MEDS ORDERED: NALOXONE (NARCAN) HCL 4 MG/0.1 ML SPRAY NS PRN (13:46)
[2024-06-07] MEDS ORDERED: BENZOCAINE/MENTHOL (CHLORASEPTIC ) LOZENGE MM PRN (13:46)
[2024-06-07] MEDS ORDERED: POLYETHYLENE GLYCOL (HEALTHYLAX) 3350 17 GM PACKET PO PRN (13:46)
[2024-06-07] MEDS ORDERED: IBUPROFEN 400 MG TABLET (FP) PO PRN (13:46)
[2024-06-07] MEDS: BUPRENORPHINE/NALOXONE 8 MG/2 MG FILM PACKET SL SCH (16:07)
[2024-06-07] MEDS: ACAMPROSATE CALCIUM 333 MG TABLET.DR PO SCH (16:07)
[2024-06-07] MEDS: BUPRENORPHINE/NALOXONE 8 MG/2 MG FILM PACKET SL ONE (16:08)
[2024-06-07] MEDS: ACAMPROSATE CALCIUM 333 MG TABLET.DR PO ONE (16:18)
[2024-06-07] MEDS: MELATONIN 5 MG TABLETS PO SCH (21:19)
[2024-06-07] MEDS: THIAMINE 100 MG TABLET PO SCH (21:20)
[2024-06-07] MEDS: ATORVASTATIN CA 40 MG TABLET (FP) PO SCH (21:21)
[2024-06-07] MEDS ORDERED: METOPROLOL TARTRATE 25 MG TABLET (FP) PO SCH (22:00)
[2024-06-08] MEDS: FUROSEMIDE 20 MG TABLET (FP) PO SCH (05:48)
[2024-06-08] MEDS: metFORMIN HCL 500 MG TABLET (FP) PO SCH (07:18)
[2024-06-08] MEDS ORDERED: PATIENT'S OWN MEDICATION (NON-FORMULARY) (Metformin Hcl [Metformin Er Osmotic] 1,000 MG Ta PO SCH (08:00)
[2024-06-08] MEDS: TIOTROPIUM BROMIDE 2.5 MCG (SPIRIVA) RESPIMAT INHALER IH SCH (09:07)
[2024-06-08] MEDS: PRENATAL VITAMINS W/ FOLIC ACID TABLET (FP) PO SCH (09:08)
[2024-06-08] MEDS: ACETAMINOPHEN 325 MG TABLET (FP) PO PRN (09:09)
[2024-06-08] MEDS: SERTRALINE HCL 50 MG TABLET (FP) PO SCH (09:09)
[2024-06-08] MEDS ORDERED: FUROSEMIDE 40 MG TABLET (FP) PO SCH (10:00)
[2024-06-08] MEDS: LOPERAMIDE HCL 2 MG CAPSULE PO PRN (19:53)
[2024-06-09] MEDS: IBUPROFEN 600 MG TABLET (FP) PO PRN (13:35)
[2024-06-09] MEDS: metFORMIN HCL 500 MG TABLET (FP) PO SCH (17:17)
[2024-06-09] MEDS: hydrOXYzine PAMOATE 25 MG CAPSULE (FP) PO PRN (21:42)
[2024-06-10] MEDS ORDERED: diazePAM 5 MG TABLET PO PRN (12:27)
[2024-06-10] MEDS ORDERED: TIOTROPIUM BROMIDE 2.5 MCG (SPIRIVA) RESPIMAT INHALER IH SCH (12:45)
[2024-06-10] MEDS: BUDESONIDE/FORMOTEROL FUMARATE 160-4.5 MCG (10.3 GM INHALER) IH SCH (14:45)
[2024-06-10] MEDS: ALBUTEROL SO4 HFA INHALER IH PRN (22:35)
[2024-06-11 11:25] LABS: INR 0.92 (0.83-1.09); PROTHROMBIN TIME (PATIENT) 10.6 SEC (9.7-13.0)
[2024-06-14 14:09] LABS: POTASSIUM 3.6 mmol/L (3.5-5.1)
[2024-06-14 14:13] LABS: BLOOD UREA NITROGEN 10.1 mg/dL (7-18)
[2024-06-14 14:14] LABS: CALCIUM 8.9 mg/dL (8.5-10.1)
[2024-06-14 14:16] LABS: CREATININE 0.7 mg/dL (0.55-1.3)
[2024-06-17] MEDS: METHYL SALICYLATE/MENTHOL 30 GM TUBE TP SCH (11:07)
[2024-06-17] MEDS: FUROSEMIDE 20 MG TABLET (FP) PO SCH (13:12)
[2024-06-18] MEDS ORDERED: diazePAM 5 MG TABLET PO PRN (13:45)
[2024-06-18] MEDS: ALBUTEROL SO4 2.5/IPRATROPIUM 0.5 INH SOL 3 ML VIAL.NEB. NEB PRN (13:54)
[2024-06-18] MEDS: RIFAXIMIN 550 MG TABLET PO SCH (21:28)
[2024-06-20] MEDS: NICOTINE POLACRILEX 2 MG GUM BUC PRN (16:27)
[2024-06-20] MEDS: MAG HYDROX/AL HYDROX/SIMETH 30 ML UNIT-DOSE CUP PO PRN (16:29)
[2024-06-22 16:55] VITALS: BP 113/68; PULSE 95; RESP 18; TEMP 96.9
== END 2024-06-23 00:02 | disposition short-term general hospital (02) | DRG 772 ==
LOC: YASAS 13:43 → Y3NR 13:46 → Y5N 06-08 11:27 → Y3NR 06-10 13:32 → Y5N 06-14 11:12
PROVIDERS: ADMIT Psychiatry & Neurology Pain Medicine; ATTEND Psychiatry & Neurology Pain Medicine
PROC: HZ42ZZZ Group Counseling for Substance Abuse Treatment, Cognitive-Behavioral (ICD-10-PCS; principal; 2024-06-07)
DX: F10.20 Alcohol dependence, uncomplicated (principal); F11.20 Opioid dependence, uncomplicated; F17.210 Nicotine dependence, cigarettes, uncomplicated; E72.20 Disorder of urea cycle metabolism, unspecified; I11.0 Hypertensive heart disease with heart failure; I50.9 Heart failure, unspecified; E78.5 Hyperlipidemia, unspecified; E11.9 Type 2 diabetes mellitus without complications; Z79.84 Long term (current) use of oral hypoglycemic drugs; J44.9 Chronic obstructive pulmonary disease, unspecified; K21.9 Gastro-esophageal reflux disease without esophagitis; M19.90 Unspecified osteoarthritis, unspecified site; M06.9 Rheumatoid arthritis, unspecified; M54.50 Low back pain, unspecified; G89.29 Other chronic pain; R60.0 Localized edema; R26.2 Difficulty in walking, not elsewhere classified; Z87.19 Personal history of other diseases of the digestive system
CPT/HCPCS: 36415; 71045-TC-FY; 80048; 80305; 82140; 82652; 82962; 83735; 85610; 94640

== ENCOUNTER 2024-06-22 17:40 | Inpatient (IN) | payer OTHER ==
[2024-06-22 19:56] LABS: BASO % 1.6 % (0-2.0); EOS % 3.6 % (0-4.5); HEMATOCRIT 33.8 % (32.4-45.2); HEMOGLOBIN 10.6 GM/dL (10.7-15.3); MCH 28.4 pg (25.7-33.7); MCHC 31.2 g/dl (32.0-36.0); MONO % 4.4 % (3.8-10.2); NEUT % 66.4 % (42.8-82.8); PLATELET COUNT 309 10^3/uL (134-434); RBC 3.72 M/mm3 (3.60-5.2); RDW 16.6 % (11.6-15.6)
[2024-06-22] MEDS ORDERED: IBUPROFEN 400 MG TABLET (FP) PO ONE (20:08)
[2024-06-22] MEDS: IBUPROFEN 400 MG TABLET (FP) PO ONE (20:17)
[2024-06-22 20:23] LABS: POTASSIUM 3.4 mmol/L (3.5-5.1)
[2024-06-22 20:25] LABS: ALBUMIN 3.4 g/dl (3.4-5.0); BLOOD UREA NITROGEN 12.8 mg/dL (7-18); CALCIUM 9.4 mg/dL (8.5-10.1)
[2024-06-22 20:28] LABS: CREATININE 0.9 mg/dL (0.55-1.3)
[2024-06-22 20:30] LABS: BILIRUBIN,TOTAL 0.3 mg/dL (0.2-1); TOT PROT 7.5 g/dl (6.4-8.2)
[2024-06-22 20:33] LABS: N-TERMINAL BNP 1332.5 pg/ml (5-125)
[2024-06-22 21:12] LABS: URINE APPEARANCE CLEAR; URINE BILIRUBIN NEGATIVE (NEGATIVE); URINE COLOR YELLOW; URINE GLUCOSE (UA) NEGATIVE (NEGATIVE); URINE KETONE NEGATIVE (NEGATIVE); URINE NITRITE NEGATIVE (NEGATIVE); URINE PROTEIN NEGATIVE (NEGATIVE); URINE UROBILINOGEN 0.2 mg/dL (0.2-1.0)
[2024-06-22 21:13] LABS: EPI CELLS 45.9 /uL (0-25.1); HYALINE CASTS 0.41 /uL (0-3.1); URINE BACTERIA 2396.4 /uL (0-1359); URINE LEUK ESTERASE 1+ (NEGATIVE); URINE RBC 17.4 /uL (0-23.9); URINE WBC 124.9 /uL (0-25.8)
[2024-06-22] MEDS ORDERED: CEFTRIAXONE 1 G/50 ML PREMIX 50 ML IVPB ONE (21:50)
[2024-06-22] MEDS: CEFTRIAXONE 1,000 MG in DEXTROSE 5%-WATER - 50 ML IVPB ONE (21:59)
[2024-06-23] MEDS: BUPRENORPHINE/NALOXONE 8 MG/2 MG FILM PACKET SL SCH (00:49)
[2024-06-23] MEDS: LIDOCAINE 5% TOPICAL PATCH TP SCH (00:49)
[2024-06-23] MEDS: FUROSEMIDE 40 MG/4 ML INJECTABLE VIAL IVPUSH ONE (00:49)
[2024-06-23] MEDS: POTASSIUM CHLORIDE TABS 20 MEQ TABLET.ER (FP) PO ONE (01:12)
[2024-06-23] MEDS: KCL 10 MEQ IVPB 10 MEQ/100 ML INFUS.BAG IVPB SCH (01:25)
[2024-06-23] MEDS ORDERED: FUROSEMIDE 40 MG TABLET (FP) PO SCH (02:00)
[2024-06-23 02:19] VITALS: BMI 42.9
[2024-06-23] MEDS: POTASSIUM CHLORIDE ORAL LIQUID 20 MEQ/15 ML PO ONE (02:22)
[2024-06-23] MEDS: INSULIN ASPART SLIDING SCALE (NOVOLOG) 1 VIAL SQ SCH (06:24)
[2024-06-23 07:53] LABS: BASO % 1.2 % (0-2.0); EOS % 4.1 % (0-4.5); LYMPH % 28.1 % (8-40); MCH 27.8 pg (25.7-33.7); MCHC 31.3 g/dl (32.0-36.0); MEAN CELL VOLUME 88.9 fl (80-96); MEAN PLT VOLUME 9.2 fl (7.5-11.1); MONO % 7.1 % (3.8-10.2); NEUT % 59.5 % (42.8-82.8); PLATELET COUNT 262 10^3/uL (134-434); RDW 16.7 % (11.6-15.6); WHITE BLOOD COUNT 6.5 K/mm3 (4.0-10.0)
[2024-06-23 07:58] LABS: POTASSIUM 3.8 mmol/L (3.5-5.1)
[2024-06-23 08:07] LABS: ALBUMIN 2.9 g/dl (3.4-5.0); CALCIUM 8.8 mg/dL (8.5-10.1)
[2024-06-23 08:08] LABS: BLOOD UREA NITROGEN 10.5 mg/dL (7-18); MAGNESIUM 1.8 mg/dL (1.8-2.4)
[2024-06-23 08:09] LABS: BILIRUBIN,TOTAL 0.4 mg/dL (0.2-1); TOT PROT 6.3 g/dl (6.4-8.2)
[2024-06-23 08:11] LABS: CREATININE 0.6 mg/dL (0.55-1.3); PHOSPHOROUS 3.6 mg/dL (2.5-4.9)
[2024-06-23] MEDS: ENOXAPARIN NA (PORCINE) 40 MG/0.4 ML DISP.SYRIN SQ SCH (09:33)
[2024-06-23] MEDS: SERTRALINE HCL 50 MG TABLET (FP) PO SCH (09:33)
[2024-06-23] MEDS: PRENATAL VITAMINS W/ FOLIC ACID TABLET (FP) PO SCH (09:33)
[2024-06-23] MEDS: THIAMINE 100 MG TABLET PO SCH (09:33)
[2024-06-23] MEDS: FUROSEMIDE 40 MG/4 ML INJECTABLE VIAL IVPUSH SCH ×2 (09:33→15:37)
[2024-06-23] MEDS: NICOTINE 7 MG/24 HOURS TOPICAL PATCH TD SCH (09:34)
[2024-06-23] MEDS: ACETAMINOPHEN 325 MG TABLET (FP) PO PRN (13:30)
[2024-06-23] MEDS ORDERED: MELATONIN PO SCH (22:00)
[2024-06-23] MEDS ORDERED: PYRIDOXINE HCL PO SCH (22:00)
[2024-06-23] MEDS ORDERED: [UNRECOGNIZED DRUG - OTHER] PO SCH (22:00)
[2024-06-23] MEDS: MELATONIN 5 MG TABLETS PO SCH (22:05)
[2024-06-23] MEDS: LIDOCAINE PATCH REMOVAL MC SCH (22:05)
[2024-06-23] MEDS: ATORVASTATIN CA 40 MG TABLET (FP) PO SCH (22:05)
[2024-06-23] MEDS: METOPROLOL TARTRATE 25 MG TABLET (FP) PO SCH (22:29)
[2024-06-24 07:46] LABS: BASO % 0.7 % (0-2.0); EOS % 4.3 % (0-4.5); HEMATOCRIT 36.2 % (32.4-45.2); HEMOGLOBIN 11.3 GM/dL (10.7-15.3); LYMPH % 35.2 % (8-40); MCH 28.2 pg (25.7-33.7); MCHC 31.3 g/dl (32.0-36.0); MEAN CELL VOLUME 90.2 fl (80-96); MEAN PLT VOLUME 9.4 fl (7.5-11.1); MONO % 5.8 % (3.8-10.2); PLATELET COUNT 305 10^3/uL (134-434); RBC 4.02 M/mm3 (3.60-5.2); RDW 16.3 % (11.6-15.6); WHITE BLOOD COUNT 6.6 K/mm3 (4.0-10.0)
[2024-06-24 08:03] LABS: POTASSIUM 3.6 mmol/L (3.5-5.1)
[2024-06-24 08:18] LABS: CALCIUM 9.8 mg/dL (8.5-10.1)
[2024-06-24 08:19] LABS: ALBUMIN 3.2 g/dl (3.4-5.0); BLOOD UREA NITROGEN 13.6 mg/dL (7-18)
[2024-06-24 08:22] LABS: BILIRUBIN,TOTAL 0.4 mg/dL (0.2-1); CREATININE 0.8 mg/dL (0.55-1.3)
[2024-06-24 08:24] LABS: TOT PROT 7.3 g/dl (6.4-8.2)
[2024-06-24] MEDS: BUDESONIDE/FORMETEROL FUMARATE 160/4.5 mcg INHALER IH SCH (15:50)
[2024-06-24] MEDS: TIOTROPIUM BROMIDE 2.5 MCG (SPIRIVA) RESPIMAT INHALER IH SCH (15:50)
[2024-06-25 08:46] LABS: POTASSIUM 3.5 mmol/L (3.5-5.1)
[2024-06-25 08:53] LABS: CALCIUM 9.3 mg/dL (8.5-10.1)
[2024-06-25 08:54] LABS: ALBUMIN 3.1 g/dl (3.4-5.0); BLOOD UREA NITROGEN 12.2 mg/dL (7-18); MAGNESIUM 1.9 mg/dL (1.8-2.4)
[2024-06-25 08:57] LABS: BILIRUBIN,TOTAL 0.4 mg/dL (0.2-1); CREATININE 0.7 mg/dL (0.55-1.3); TOT PROT 6.8 g/dl (6.4-8.2)
[2024-06-25 08:58] LABS: PHOSPHOROUS 4.5 mg/dL (2.5-4.9)
[2024-06-25 09:16] LABS: HEMATOCRIT 35.3 % (32.4-45.2); HEMOGLOBIN 11.3 GM/dL (10.7-15.3); MCH 28.6 pg (25.7-33.7); MCHC 32.1 g/dl (32.0-36.0); MEAN CELL VOLUME 89.1 fl (80-96); MEAN PLT VOLUME 9.3 fl (7.5-11.1); PLATELET COUNT 290 10^3/uL (134-434); RBC 3.96 M/mm3 (3.60-5.2); RDW 16.3 % (11.6-15.6); WHITE BLOOD COUNT 7.2 K/mm3 (4.0-10.0)
[2024-06-25 10:40] LABS: ANISOCYTOSIS 0; MACROCYTOSIS 0; TARGET CELLS 1+
[2024-06-26 06:45] LABS: BASO % 0.9 % (0-2.0); EOS % 3.3 % (0-4.5); HEMATOCRIT 33.6 % (32.4-45.2); HEMOGLOBIN 10.8 GM/dL (10.7-15.3); LYMPH % 27.5 % (8-40); MCH 28.5 pg (25.7-33.7); MEAN CELL VOLUME 88.9 fl (80-96); MEAN PLT VOLUME 8.5 fl (7.5-11.1); MONO % 5.6 % (3.8-10.2); NEUT % 62.7 % (42.8-82.8); PLATELET COUNT 293 10^3/uL (134-434); RBC 3.78 M/mm3 (3.60-5.2); RDW 15.7 % (11.6-15.6); WHITE BLOOD COUNT 7.9 K/mm3 (4.0-10.0)
[2024-06-26 07:09] LABS: POTASSIUM 3.4 mmol/L (3.5-5.1)
[2024-06-26 07:09] LABS: FREE KAP CHN UR 1.19 mg/L (1.17-86.46); KAPPA LAMBDA RATIO URIN >1.72 (1.83-14.26)
[2024-06-26 07:14] LABS: BLOOD UREA NITROGEN 17.1 mg/dL (7-18); CALCIUM 9.2 mg/dL (8.5-10.1); MAGNESIUM 1.9 mg/dL (1.8-2.4)
[2024-06-26 07:17] LABS: CREATININE 0.7 mg/dL (0.55-1.3)
[2024-06-26 07:18] LABS: BILIRUBIN,TOTAL 0.3 mg/dL (0.2-1); TOT PROT 6.7 g/dl (6.4-8.2)
[2024-06-26] MEDS: POTASSIUM CHLORIDE ORAL LIQUID 20 MEQ/15 ML PO ONE (10:01)
[2024-06-28 11:02] VITALS: RESP 18
[2024-06-28 12:57] LABS: CALCIUM 9.6 mg/dL (8.5-10.1); POTASSIUM 3.9 mmol/L (3.5-5.1)
[2024-06-28 13:02] LABS: CREATININE 0.7 mg/dL (0.55-1.3)
[2024-06-28 16:11] VITALS: BP 138/77; PULSE 77; TEMP 98.1
[2024-06-29 16:07] LABS: TOTAL PROTEIN, URINE 9.2 mg/dL (Not Estab.)
[2024-06-29 19:13] LABS: FREE KAPPA,SERUM 40.6 mg/L (3.3-19.4)
== END 2024-06-28 16:19 | disposition home or self-care (01) | DRG 194 ==
LOC: JER 17:40 → JERBED 20:51 → J4W 23:51 → OBSVTOIN 06-24 09:29
PROVIDERS: ADMIT Internal Medicine; ATTEND Student in an Organized Health Care Education/Training Program
DX: I11.0 Hypertensive heart disease with heart failure (principal); I50.33 Acute on chronic diastolic (congestive) heart failure; F11.20 Opioid dependence, uncomplicated; F10.20 Alcohol dependence, uncomplicated; J44.9 Chronic obstructive pulmonary disease, unspecified; E77.8 Other disorders of glycoprotein metabolism; E88.09 Other disorders of plasma-protein metabolism, not elsewhere classified; K21.9 Gastro-esophageal reflux disease without esophagitis; E78.5 Hyperlipidemia, unspecified; M54.50 Low back pain, unspecified; E66.9 Obesity, unspecified; Z68.39 Body mass index [BMI] 39.0-39.9, adult; M06.9 Rheumatoid arthritis, unspecified; E11.9 Type 2 diabetes mellitus without complications; R82.81 Pyuria; F32.A Depression, unspecified
CPT/HCPCS: 36415; 71045-TC-FY; 80048; 80053; 81003; 82962; 83615; 83735; 83880; 83883; 84100; 84155; 84156; 84157; 84165; 84443; 85025; 93005; 93010; 97116-GP; 97163-GP; 99285-25; G0378